=== PATIENT | female | born 1990 | race Caucasian/White ===

== ENCOUNTER 2021-04-06 13:53 | Inpatient (IN) | payer MEDICAID, SELFPAY ==
--- NOTE | ~2021-04-06 | US_ITS ---
EXAMINATION: US VENOUS ULTRASOUND WITH DOPPLER LOWER EXTREMITY, BILATERAL CLINICAL INFORMATION: Left knees with cellulitis. Question abscess or joint effusion. COMPARISON: None TECHNIQUE: Ultrasound of the deep veins is performed from the hip to the calf with compression sonography and color and pulse Doppler assessment. Spectral analysis with color-flow imaging is performed. FINDINGS: RIGHT: There is normal venous compression and respiratory variation and augmented flow. The visualized common femoral vein, superficial femoral vein, profunda femoral vein, popliteal vein, and the trifurcation region shows no evidence of deep venous thrombosis. There is no popliteal fossa cyst. LEFT: There is normal venous compression and respiratory variation and augmented flow. The visualized common femoral vein, superficial femoral vein, profunda femoral vein, popliteal vein, and the trifurcation region shows no evidence of deep venous thrombosis. There is no popliteal fossa cyst. There is soft tissue edema. There is a small amount of fluid adjacent to the patella. US/US venous duplex LE BI IMPRESSION: No DVT demonstrated in the bilateral lower extremity. Left leg edema and small amount of fluid adjacent to the patella.
--- NOTE | ~2021-04-06 | CT_ITS ---
EXAMINATION: CT ABDOMEN AND PELVIS WITH CONTRAST CLINICAL INFORMATION: Liver failure. Evaluate for mass or obstruction COMPARISON: None TECHNIQUE: Multidetector volumetric images were obtained from the superior aspect of through the pubic symphysis following administration 85 mL of Omnipaque 350 intravenous contrast. Sagittal and coronal reformatted images were obtained on the technologist's workstation. Oral contrast: No This CT examination was performed using dose optimization techniques as appropriate, variously including the following: *Automated exposure control *Adjustment of mA and/or kV according to patient size (this includes techniques or standardized protocols for targeted exams where dose is matched to indication/reason for exam; i.e. extremities or head) *Use of iterative reconstruction technique DLP: 313 mGy-cm FINDINGS: LUNG BASES: No suspicious abnormality in the visualized lower chest LIVER, GALLBLADDER, AND BILIARY TREE: The right lobe measures 19.9 cm. This is between 1 and 2 standard deviations above the mean expected. The liver contour appears smooth. The background hepatic signal appears homogeneous. There is low attenuation tracking along the portal vessels. This can be seen with edema. There is no suspicious focal liver lesion. There are surgical clips in the expected region of the gallbladder. The common duct measures 0.9 cm which is within normal limits after cholecystectomy. PANCREAS: No suspicious abnormality. No pancreatic ductal dilation. SPLEEN: The spleen measures 11.2 cm. This is within one standard deviation of the mean expected. No focal abnormality. ADRENAL GLANDS: Normal KIDNEYS AND URETERS: There is no dilation of the urinary collecting system on either side. There is no suspicious renal mass. Some high attenuation in the central aspect the left kidney could be related to excreted contrast. BLADDER: The bladder is dilated. No focal abnormality. GASTROINTESTINAL TRACT: The absence of fat limits the exam. No definite colonic wall thickening. No small bowel dilation. No suspicious abnormality the stomach. There is no pneumatosis or pneumoperitoneum. ABDOMINAL WALL: No significant hernia is appreciated. LYMPH NODES: There are no measurably enlarged abdominal or pelvic lymph nodes. VASCULAR: There is no abdominal aortic aneurysm. The portal vein enhances. PELVIC VISCERA: Punctate calcification near the junction of cervix with uterine body. There is some gas in the vaginal fornices. OSSEOUS STRUCTURES: No suspicious focal lesion. CT/CT abdomen pelvis w con IMPRESSION: No focal liver lesion. Mild hepatomegaly. Previous cholecystectomy with no biliary dilation. Low attenuation tracks along the portal triads. This can be seen with edema and hepatitis or cholangitis.
--- NOTE | ~2021-04-06 | XR_ITS ---
EXAMINATION: 1. LEFT KNEE. 2. LEFT TIBIA-FIBULA. CLINICAL INFORMATION: Concern for osteomyelitis. COMPARISON: None TECHNIQUE: 1. Left knee. 5 views 2. Left leg. 2 views FINDINGS: 1. Left knee. No focal bone destruction. No joint effusion. There is swelling of the prepatellar soft tissues without air collection or radiopaque foreign body. 2. Left leg. No fracture. No focal bone lesion or abnormal periosteal reaction. No radiographic evidence for osteomyelitis. No soft tissue abnormality. XR/XR knee LT 3V IMPRESSION: 1. Left knee. No evidence for osteomyelitis. No acute osseous abnormality. There is soft tissue swelling in the prepatellar soft tissues. 2. Left leg. Normal left leg.
--- NOTE | ~2021-04-06 | XR_ITS ---
EXAMINATION: 1. LEFT KNEE. 2. LEFT TIBIA-FIBULA. CLINICAL INFORMATION: Concern for osteomyelitis. COMPARISON: None TECHNIQUE: 1. Left knee. 5 views 2. Left leg. 2 views FINDINGS: 1. Left knee. No focal bone destruction. No joint effusion. There is swelling of the prepatellar soft tissues without air collection or radiopaque foreign body. 2. Left leg. No fracture. No focal bone lesion or abnormal periosteal reaction. No radiographic evidence for osteomyelitis. No soft tissue abnormality. XR/XR tibia fibula LT 2V IMPRESSION: 1. Left knee. No evidence for osteomyelitis. No acute osseous abnormality. There is soft tissue swelling in the prepatellar soft tissues. 2. Left leg. Normal left leg.
[2021-04-06 15:30] VITALS: BP 133/84; PULSE 118; RESP 18; TEMP 36.4; O2SAT 100; BMI 20.5
[2021-04-06 17:12] LABS: Basophils Absolute Auto 0.1 X10*3/uL (0.0-0.2); Basophils Percent Auto 0.3 % (0-2); Eosinophils Absolute Auto 0.1 X10*3/uL (0.0-0.4); Eosinophils Percent Auto 0.8 % (0-4); Hematocrit 40.1 % (37-47); Hemoglobin 13.9 g/dl (12.0-16.0); Imm Gran Pct Auto 0.6 % (0.0-0.4); Lymphocytes Absolute Auto 3.9 X10*3/uL (1.2-4.9); Lymphocytes Percent Auto 22.3 % (20-40); MANUAL DIFF FLAG SCAN; Mean Corpuscular HGB Conc 34.7 g/dl (31.0-35.0); Mean Corpuscular Hemoglobin 31.1 pg (27.0-33.0); Mean Corpuscular Volume 89.7 fL (80-98); Mean Platelet Volume 9.5 fL (9.4-12.3); Monocytes Absolute Auto 1.9 X10*3/uL (0.1-1.2); Monocytes Percent Auto 10.8 % (2-11); Neutrophils Absolute Auto 11.5 X10*3/uL (2.0-8.3); Neutrophils Percent Auto 65.2 % (45-73); Platelet Count 397 X10*3/uL (160-400); Red Blood Count 4.47 X10*6/uL (4.20-5.50); Red Cell Distribution Width 13.9 % (11.0-16.0); SCAN SMEAR FLAG 1; White Blood Count 17.6 X10*3/uL (4.8-10.8)
[2021-04-06 17:24] LABS: Lactic Acid 1.9 mmol/L (0.5-2.0)
[2021-04-06] MEDS: cefTRIAXone sodium 1 GM in 0.9 % Sodium Chloride 50 ML IV (17:26)
--- NOTE | 2021-04-06 17:26 | ED.WOUNDLAC ---
HPI - Wound/Laceration General Chief Complaint: Wound/Laceration <CAMRYN Duron Last Filed: 04/06/21 19:08> Stated Complaint: L LEG SWELLING PAIN <CAMRYN Duron Last Filed: 04/06/21 19:08> Time Seen by Provider: 04/06/21 16:34 <CAMRYN Duron Last Filed: 04/06/21 19:08> Source: patient <CAMRYN Duron Last Filed: 04/06/21 19:08> Mode of arrival: ambulatory <CAMRYN Duron Last Filed: 04/06/21 19:08> History of Present Illness HPI narrative: 30-year-old female with no significant past medical history presenting to the ED complaining of left knee erythema, pain, and swelling x3 days. Reports had small shards of glass stuck in leg that she picked out a few days ago from blanket. Reports pain with ROM and ambulation. Denies IVDA numbness, tingling, weakness, fever, chills <CAMRYN Duron Last Filed: 04/06/21 19:08> Onset (ago): day(s) <CAMRYN Duron Last Filed: 04/06/21 19:08> Related Data Allergies/Adverse Reactions: Allergies Allergy/AdvReac Type Severity Reaction Status Date / Time No Known Allergies Allergy Unverified 04/06/21 16:43 <CAMRYN Duron Last Filed: 04/06/21 19:08> Review of Systems Review of Systems: Constitutional: No Fever, No Chills,No Fatigue, No Malaise ENT/Mouth: No Ear Pain, No Nasal Congestion, No sore throat Eyes: No Eye Pain, No Swelling, No Redness, No Vision Changes Cardiovascular: No Chest Pain, No SOB, No Dyspnea on Exertion, No Orthopnea, No Edema Respiratory: No Cough, No Sputum, No Dyspnea Gastrointestinal: No Nausea, No Vomiting, No Abdominal pain, No Hematochezia, No Melena Genitourinary: No irregular bleeding, No Dysuria, No Urinary Frequency, No Hematuria,No Flank Pain Musculoskeletal: + joint pain, No Myalgias, + Joint Swelling Skin: + Skin Lesions, No rash Neuro: No Weakness, No Numbness, No Paresthesias, No Headache <CAMRYN Duron - Last Filed: 04/06/21 19:08> Yes all other systems are reviewed and are negative <CAMRYN Duron - Last Filed: 04/06/21 19:08> [facility] Past Medical History Attestation statement: The following information was validated with the patient. <CAMRYN Duron - Last Filed: 04/06/21 19:08> Medical History: Medical History (Updated 04/06/21 @ 22:55 by Rock Galvan MD) No known health problems <CAMRYN Duron - Last Filed: 04/06/21 19:08> Social History Social History: Social History (Updated 04/06/21 @ 21:15 by Audra Yanez PA-C) Use of substances other than those prescribed or required for medical reasons: Yes Substance Use Type: Crack/Cocaine, Heroin and IV Drugs Last Used Substance: Days (ago) Last Used Substance Other:: 04/05/21 Currently Displaying Signs/Symptoms of Drug Intoxication Withdrawal: No Advance Directives: No Advance Directives Information Provided: No Patient : No <CAMRYN Duron - Last Filed: 04/06/21 19:08> Physical Exam Vital Signs: Vital Signs: Last Vital Signs Temp 99.4 F 04/07/21 00:43 Pulse 94 04/07/21 00:43 Resp 04/07/21 00:43 BP 106/59 L 04/07/21 00:43 Pulse Ox 96 04/07/21 00:43 Body Mass Index 20.5 <CAMRYN Duron - Last Filed: 04/06/21 19:08> Vital Signs: Last Vital Signs Temp 99.4 F 04/07/21 00:43 Pulse 94 04/07/21 00:43 Resp 04/07/21 00:43 BP 106/59 L 04/07/21 00:43 Pulse Ox 96 04/07/21 00:43 Body Mass Index 20.5 <CAMRYN Lilly - Last Filed: 04/06/21 22:43> Vital Signs: Last Vital Signs Temp 99.4 F 04/07/21 00:43 Pulse 94 04/07/21 00:43 Resp 04/07/21 00:43 BP 106/59 L 04/07/21 00:43 Pulse Ox 96 04/07/21 00:43 Body Mass Index 20.5 <Jeet Figueredo MD - Last Filed: 04/07/21 00:50> Const: General: cooperative and no acute distress <CAMRYN Duron - Last Filed: 04/06/21 19:08> Orientation/consciousness: patient oriented x3 <CAMRYN Duron - Last Filed: 04/06/21 19:08> Limitations: no limitations <CAMRYN Duron - Last Filed: 04/06/21 19:08> HENMT: Head: Yes normal to inspection <Mya Birch PA - Last Filed: 04/06/21 19:08> Ears: hearing grossly normal bilaterally <CAMRYN Duron - Last Filed: 04/06/21 19:08> General nose exam: Normal external nose present <CAMRYN Duron - Last Filed: 04/06/21 19:08> Face and sinus: Yes normal facial exam <CAMRYN Duron - Last Filed: 04/06/21 19:08> Eyes: General: appearance normal, both eyes and all related structures <Mya Birch PA - Last Filed: 04/06/21 19:08> EOM: EOMs intact bilaterally <CAMRYN Duron - Last Filed: 04/06/21 19:08> Neck: Neck: Yes normal visual inspection <CAMRYN Duron - Last Filed: 04/06/21 19:08> Resp: Effort & Inspection: normal respiratory effort and no respiratory distress <CAMRYN Duron - Last Filed: 04/06/21 19:08> Cardio: Rate: regular rate <CAMRYN Duron - Last Filed: 04/06/21 19:08> Peripheral pulses: dorsalis pedis present <CAMRYN Duron - Last Filed: 04/06/21 19:08> GI: Inspection: Yes normal to inspection <CAMRYN Duron - Last Filed: 04/06/21 19:08> Skin: Rashes: no rashes <CAMRYN Duron - Last Filed: 04/06/21 19:08> Neuro: General: patient oriented x3 <CAMRYN Duron - Last Filed: 04/06/21 19:08> Gait exam (Neuro): Normal gait present <CAMRYN Duron - Last Filed: 04/06/21 19:08> Extrem: Other: Please refer to image is above of left lower extremity. Left knee erythematous, diffusely tender, warm/hot to touch. Limited active and passive ROM secondary to pain. Neurovascular intact distally. No fluctuance/induration. Tib/fib with superficial ulceration. Slight drainage present. No fluctuance/induration. Surrounding cellulitis, no streaking <CAMRYN Duron - Last Filed: 04/06/21 19:08> General: Yes normal to inspection <CAMRYN Duron - Last Filed: 04/06/21 19:08> Course Course Course Narrative: -noted leukocytosis of 17.6 > will obtain x-rays XR knee LT 3V IMPRESSION: 1. Left knee. No evidence for osteomyelitis. No acute osseous abnormality. There is soft tissue swelling in the prepatellar soft tissues. 2. Left leg. Normal left leg. -1811--patient in acute liver failure with total bilirubin of 4.4, D bili 2.9, AST 826, ALT 1935, alk-phos 202 >> hepatitis panel, acetaminophen, CPK added. > upon further questioning patient reports social drinker, denies Tylenol use, reports hepatitis C antibody which showed in blood however was dormant -1814--case discussed with orthopedic CAMRYN Zapata who will evaluate patient in the ED -orthopedic PA performing joint aspiration at bedside in the ED -1899--ED care transferred to CAMRYN Dominguez pending CT abdomen/pelvis, GI or surgical consult, and anticipated admission <CAMRYN Duron - Last Filed: 04/06/21 19:08> -noted leukocytosis of 17.6 > will obtain x-rays XR knee LT 3V IMPRESSION: 1. Left knee. No evidence for osteomyelitis. No acute osseous abnormality. There is soft tissue swelling in the prepatellar soft tissues. 2. Left leg. Normal left leg. -1811--patient in acute liver failure with total bilirubin of 4.4, D bili 2.9, AST 826, ALT 1935, alk-phos 202 >> hepatitis panel, acetaminophen, CPK added. > upon further questioning patient reports social drinker, denies Tylenol use, reports hepatitis C antibody which showed in blood however was dormant -1814--case discussed with orthopedic CAMRYN Zapata who will evaluate patient in the ED -orthopedic PA performing joint aspiration at bedside in the ED -1899--ED care transferred to CAMRYN Dominguez pending CT abdomen/pelvis, GI or surgical consult, and anticipated admission CT shows: No focal liver lesion. Mild hepatomegaly. Previous cholecystectomy with no biliary dilation. Low attenuation tracks along the portal triads. This can be seen with edema and hepatitis or cholangitis. Ortho PA tried to tap the knee for joint aspiration, patient cannot tolerate. Consulting GI, antibiotics have been started, will admit patient ?Spoke to OG Connor, who said patient has acute hepatitis, he did not think her liver was failing. Dr Galvan will accept pt onto hospitalist service <CAMRYN Lilly - Last Filed: 04/06/21 22:43> MDM - Wound/Laceration MDM Narrative Medical decision making narrative: 30-year-old female with no significant past medical history presenting to the ED complaining of left knee erythema, pain, and swelling x3 days. On exam tachycardic, NAD/nontoxic, physical exam as above, please refer images. Concern for cellulitis vs septic joint/arthritis. Lower concern for osteomyelitis. Low concern for underlying abscess Plan: Labs, blood cultures/lactic, x-rays, IV antibiotics, re-evaluate <CAMRYN Duron - Last Filed: 04/06/21 19:08> 30-year-old female with no significant past medical history presenting to the ED complaining of left knee erythema, pain, and swelling x3 days. On exam tachycardic, NAD/nontoxic, physical exam as above, please refer images. Concern for cellulitis vs septic joint/arthritis. Lower concern for osteomyelitis. Low concern for underlying abscess Plan: Labs, blood cultures/lactic, x-rays, IV antibiotics, re-evaluate Attending: Patient seen [id number] and evaluated by me. Multiple skin injuries and cellulitic changes to the affected knee with a joint effusion present. Patient has no abdominal symptoms but does have evidence of liver failure. Patient denied alcohol abuse, recent use of acetaminophen. She does admit to intravenous drug abuse. Patient had a thoracentesis done by orthopedics and is being admitted for further evaluation of her liver failure and knee infection <Jeet Figueredo MD - Last Filed: 04/07/21 00:50> Medical Records Attestation: I reviewed the patient's medical records. <CAMRYN Duron - Last Filed: 04/06/21 19:08> Lab Data Attestation: I reviewed the patient's lab results. <CAMRYN Duron - Last Filed: 04/06/21 19:08> Result diagrams: : 04/06/21 16:59 04/06/21 16:59 <CAMRYN Duron - Last Filed: 04/06/21 19:08> Labs: Lab Results 04/06/21 04/06/21 04/06/21 Range/Units 16:59 16:59 16:59 WBC 17.6 H (4.8-10.8) X10*3/uL RBC 4.47 (4.20-5.50) X10*6/uL Hgb 13.9 (12.0-16.0) g/dl Hct 40.1 (37-47) % MCV 89.7 (80-98) fL MCH 31.1 (27.0-33.0) pg MCHC 34.7 (31.0-35.0) g/dl RDW 13.9 (11.0-16.0) % Plt Count 397 (160-400) X10*3/uL MPV 9.5 (9.4-12.3) fL Immature Gran % (Auto) 0.6 H (0.0-0.4) % Neut % (Auto) 65.2 (45-73) % Lymph % (Auto) 22.3 (20-40) % Isabella % (Auto) 10.8 (2-11) % Eos % (Auto) 0.8 (0-4) % Baso % (Auto) 0.3 (0-2) % Lymph # (Auto) 3.9 (1.2-4.9) X10*3/uL Isabella # (Auto) 1.9 H (0.1-1.2) X10*3/uL Eos # (Auto) 0.1 (0.0-0.4) X10*3/uL Baso # (Auto) 0.1 (0.0-0.2) X10*3/uL Abs Immat Gran (auto) 0.10 H (0.00-0.03) X10*3/uL Absolute Neuts (auto) 11.5 H (2.0-8.3) X10*3/uL Absolute Nucleated RBC 0.000 (0.0-0.012) X10*3/uL Nucleated RBC % (auto) 0.0 (0.0-0.2) /100WBC Smear Tech's Comments VERIFIED ESR 4 (0-20) MM/HR PT (9.9-13.0) SEC INR (0.9-1.1) APTT (24.1-38.0) SEC Sodium 133 L (135-145) mmol/L Potassium 4.2 (3.3-5.1) mmol/L Chloride 98 (96-108) mmol/L Carbon Dioxide 23 (22-29) mmol/L Anion Gap 16 (12-20) BUN 17 H (9-16) mg/dL Creatinine 0.70 (0.5-1.4) mg/dL Estim Creat Clear Calc 70.3 Estimated GFR > 60 Random Glucose 123 H (60-115) mg/dL Lactic Acid (0.5-2.0) mmol/L Calcium 8.7 (8.4-10.2) mg/dL Magnesium 2.1 (1.6-2.6) mg/dL Total Bilirubin 4.4 H (0.0-1.0) mg/dL Direct Bilirubin 2.9 H (0.0-0.5) mg/dL AST 826 H (5-31) U/L ALT 1935 H (0-31) U/L Alkaline Phosphatase 202 H (39-117) U/L Total Creatine Kinase 21 L (26-140) U/L C-Reactive Protein 0.24 (< or = 0.50) mg/dL Total Protein 6.5 (6.5-8.0) g/dL Albumin 3.8 (3.5-5.0) g/dL Beta HCG, Quant < 2 mIU/mL Urine Opiates Screen (Not Detect) Urine Fentanyl Screen (Not Detect) Acetaminophen < 1 (<30) mcg/mL Ur Barbiturates Screen (Not Detect) Ur Phencyclidine Scrn (Not Detect) Ur Amphetamines Screen (Not Detect) U Benzodiazepines Scrn (Not Detect) Urine Cocaine Screen (Not Detect) U Marijuana (THC) Screen (Not Detect) Ethyl Alcohol mg/dL COVID-19 ([facility]) (Negative) COVID-19 Clin Com 04/06/21 04/06/21 04/06/21 Range/Units 16:59 16:59 18:46 WBC (4.8-10.8) X10*3/uL RBC (4.20-5.50) X10*6/uL Hgb (12.0-16.0) g/dl Hct (37-47) % MCV (80-98) fL MCH (27.0-33.0) pg MCHC (31.0-35.0) g/dl RDW (11.0-16.0) % Plt Count (160-400) X10*3/uL MPV (9.4-12.3) fL Immature Gran % (Auto) (0.0-0.4) % Neut % (Auto) (45-73) % Lymph % (Auto) (20-40) % Isabella % (Auto) (2-11) % Eos % (Auto) (0-4) % Baso % (Auto) (0-2) % Lymph # (Auto) (1.2-4.9) X10*3/uL Isabella # (Auto) (0.1-1.2) X10*3/uL Eos # (Auto) (0.0-0.4) X10*3/uL Baso # (Auto) (0.0-0.2) X10*3/uL Abs Immat Gran (auto) (0.00-0.03) X10*3/uL Absolute Neuts (auto) (2.0-8.3) X10*3/uL Absolute Nucleated RBC (0.0-0.012) X10*3/uL Nucleated RBC % (auto) (0.0-0.2) /100WBC Smear Tech's Comments ESR (0-20) MM/HR PT 15.4 H (9.9-13.0) SEC INR 1.3 H (0.9-1.1) APTT 32.3 (24.1-38.0) SEC Sodium (135-145) mmol/L Potassium (3.3-5.1) mmol/L Chloride (96-108) mmol/L Carbon Dioxide (22-29) mmol/L Anion Gap (12-20) BUN (9-16) mg/dL Creatinine (0.5-1.4) mg/dL Estim Creat Clear Calc Estimated GFR Random Glucose (60-115) mg/dL Lactic Acid 1.9 (0.5-2.0) mmol/L Calcium (8.4-10.2) mg/dL Magnesium (1.6-2.6) mg/dL Total Bilirubin (0.0-1.0) mg/dL Direct Bilirubin (0.0-0.5) mg/dL AST (5-31) U/L ALT (0-31) U/L Alkaline Phosphatase (39-117) U/L Total Creatine Kinase (26-140) U/L C-Reactive Protein (< or = 0.50) mg/dL Total Protein (6.5-8.0) g/dL Albumin (3.5-5.0) g/dL Beta HCG, Quant mIU/mL Urine Opiates Screen (Not Detect) Urine Fentanyl Screen (Not Detect) Acetaminophen (<30) mcg/mL Ur Barbiturates Screen (Not Detect) Ur Phencyclidine Scrn (Not Detect) Ur Amphetamines Screen (Not Detect) U Benzodiazepines Scrn (Not Detect) Urine Cocaine Screen (Not Detect) U Marijuana (THC) Screen (Not Detect) Ethyl Alcohol < 10 mg/dL COVID-19 ([facility]) (Negative) COVID-19 Clin Com 04/06/21 04/06/21 04/06/21 Range/Units 18:46 18:46 20:08 WBC (4.8-10.8) X10*3/uL RBC (4.20-5.50) X10*6/uL Hgb (12.0-16.0) g/dl Hct (37-47) % MCV (80-98) fL MCH (27.0-33.0) pg MCHC (31.0-35.0) g/dl RDW (11.0-16.0) % Plt Count (160-400) X10*3/uL MPV (9.4-12.3) fL Immature Gran % (Auto) (0.0-0.4) % Neut % (Auto) (45-73) % Lymph % (Auto) (20-40) % Isabella % (Auto) (2-11) % Eos % (Auto) (0-4) % Baso % (Auto) (0-2) % Lymph # (Auto) (1.2-4.9) X10*3/uL Isabella # (Auto) (0.1-1.2) X10*3/uL Eos # (Auto) (0.0-0.4) X10*3/uL Baso # (Auto) (0.0-0.2) X10*3/uL Abs Immat Gran (auto) (0.00-0.03) X10*3/uL Absolute Neuts (auto) (2.0-8.3) X10*3/uL Absolute Nucleated RBC (0.0-0.012) X10*3/uL Nucleated RBC % (auto) (0.0-0.2) /100WBC Smear Tech's Comments ESR (0-20) MM/HR PT (9.9-13.0) SEC INR (0.9-1.1) APTT Cancelled (24.1-38.0) SEC Sodium (135-145) mmol/L Potassium (3.3-5.1) mmol/L Chloride (96-108) mmol/L Carbon Dioxide (22-29) mmol/L Anion Gap (12-20) BUN (9-16) mg/dL Creatinine (0.5-1.4) mg/dL Estim Creat Clear Calc Estimated GFR Random Glucose (60-115) mg/dL Lactic Acid (0.5-2.0) mmol/L Calcium (8.4-10.2) mg/dL Magnesium (1.6-2.6) mg/dL Total Bilirubin (0.0-1.0) mg/dL Direct Bilirubin (0.0-0.5) mg/dL AST (5-31) U/L ALT (0-31) U/L Alkaline Phosphatase (39-117) U/L Total Creatine Kinase (26-140) U/L C-Reactive Protein (< or = 0.50) mg/dL Total Protein (6.5-8.0) g/dL Albumin (3.5-5.0) g/dL Beta HCG, Quant mIU/mL Urine Opiates Screen POSITIVE H (Not Detect) Urine Fentanyl Screen POSITIVE H (Not Detect) Acetaminophen (<30) mcg/mL Ur Barbiturates Screen Not Detected (Not Detect) Ur Phencyclidine Scrn Not Detected (Not Detect) Ur Amphetamines Screen Not Detected (Not Detect) U Benzodiazepines Scrn Not Detected (Not Detect) Urine Cocaine Screen POSITIVE H (Not Detect) U Marijuana (THC) Screen Not Detected (Not Detect) Ethyl Alcohol mg/dL COVID-19 ([facility]) Negative (Negative) COVID-19 Clin Com See Note <CAMRYN Duron - Last Filed: 04/06/21 19:08> Lab Results 04/06/21 04/06/21 04/06/21 Range/Units 16:59 16:59 16:59 WBC 17.6 H (4.8-10.8) X10*3/uL RBC 4.47 (4.20-5.50) X10*6/uL Hgb 13.9 (12.0-16.0) g/dl Hct 40.1 (37-47) % MCV 89.7 (80-98) fL MCH 31.1 (27.0-33.0) pg MCHC 34.7 (31.0-35.0) g/dl RDW 13.9 (11.0-16.0) % Plt Count 397 (160-400) X10*3/uL MPV 9.5 (9.4-12.3) fL Immature Gran % (Auto) 0.6 H (0.0-0.4) % Neut % (Auto) 65.2 (45-73) % Lymph % (Auto) 22.3 (20-40) % Isabella % (Auto) 10.8 (2-11) % Eos % (Auto) 0.8 (0-4) % Baso % (Auto) 0.3 (0-2) % Lymph # (Auto) 3.9 (1.2-4.9) X10*3/uL Isabella # (Auto) 1.9 H (0.1-1.2) X10*3/uL Eos # (Auto) 0.1 (0.0-0.4) X10*3/uL Baso # (Auto) 0.1 (0.0-0.2) X10*3/uL Abs Immat Gran (auto) 0.10 H (0.00-0.03) X10*3/uL Absolute Neuts (auto) 11.5 H (2.0-8.3) X10*3/uL Absolute Nucleated RBC 0.000 (0.0-0.012) X10*3/uL Nucleated RBC % (auto) 0.0 (0.0-0.2) /100WBC Smear Tech's Comments VERIFIED ESR 4 (0-20) MM/HR PT (9.9-13.0) SEC INR (0.9-1.1) APTT (24.1-38.0) SEC Sodium 133 L (135-145) mmol/L Potassium 4.2 (3.3-5.1) mmol/L Chloride 98 (96-108) mmol/L Carbon Dioxide 23 (22-29) mmol/L Anion Gap 16 (12-20) BUN 17 H (9-16) mg/dL Creatinine 0.70 (0.5-1.4) mg/dL Estim Creat Clear Calc 70.3 Estimated GFR > 60 Random Glucose 123 H (60-115) mg/dL Lactic Acid (0.5-2.0) mmol/L Calcium 8.7 (8.4-10.2) mg/dL Magnesium 2.1 (1.6-2.6) mg/dL Total Bilirubin 4.4 H (0.0-1.0) mg/dL Direct Bilirubin 2.9 H (0.0-0.5) mg/dL AST 826 H (5-31) U/L ALT 1935 H (0-31) U/L Alkaline Phosphatase 202 H (39-117) U/L Total Creatine Kinase 21 L (26-140) U/L C-Reactive Protein 0.24 (< or = 0.50) mg/dL Total Protein 6.5 (6.5-8.0) g/dL Albumin 3.8 (3.5-5.0) g/dL Beta HCG, Quant < 2 mIU/mL Urine Opiates Screen (Not Detect) Urine Fentanyl Screen (Not Detect) Acetaminophen < 1 (<30) mcg/mL Ur Barbiturates Screen (Not Detect) Ur Phencyclidine Scrn (Not Detect) Ur Amphetamines Screen (Not Detect) U Benzodiazepines Scrn (Not Detect) Urine Cocaine Screen (Not Detect) U Marijuana (THC) Screen (Not Detect) Ethyl Alcohol mg/dL COVID-19 ([facility]) (Negative) COVID-19 Clin Com 04/06/21 04/06/21 04/06/21 Range/Units 16:59 16:59 18:46 WBC (4.8-10.8) X10*3/uL RBC (4.20-5.50) X10*6/uL Hgb (12.0-16.0) g/dl Hct (37-47) % MCV (80-98) fL MCH (27.0-33.0) pg MCHC (31.0-35.0) g/dl RDW (11.0-16.0) % Plt Count (160-400) X10*3/uL MPV (9.4-12.3) fL Immature Gran % (Auto) (0.0-0.4) % Neut % (Auto) (45-73) % Lymph % (Auto) (20-40) % Isabella % (Auto) (2-11) % Eos % (Auto) (0-4) % Baso % (Auto) (0-2) % Lymph # (Auto) (1.2-4.9) X10*3/uL Isabella # (Auto) (0.1-1.2) X10*3/uL Eos # (Auto) (0.0-0.4) X10*3/uL Baso # (Auto) (0.0-0.2) X10*3/uL Abs Immat Gran (auto) (0.00-0.03) X10*3/uL Absolute Neuts (auto) (2.0-8.3) X10*3/uL Absolute Nucleated RBC (0.0-0.012) X10*3/uL Nucleated RBC % (auto) (0.0-0.2) /100WBC Smear Tech's Comments ESR (0-20) MM/HR PT 15.4 H (9.9-13.0) SEC INR 1.3 H (0.9-1.1) APTT 32.3 (24.1-38.0) SEC Sodium (135-145) mmol/L Potassium (3.3-5.1) mmol/L Chloride (96-108) mmol/L Carbon Dioxide (22-29) mmol/L Anion Gap (12-20) BUN (9-16) mg/dL Creatinine (0.5-1.4) mg/dL Estim Creat Clear Calc Estimated GFR Random Glucose (60-115) mg/dL Lactic Acid 1.9 (0.5-2.0) mmol/L Calcium (8.4-10.2) mg/dL Magnesium (1.6-2.6) mg/dL Total Bilirubin (0.0-1.0) mg/dL Direct Bilirubin (0.0-0.5) mg/dL AST (5-31) U/L ALT (0-31) U/L Alkaline Phosphatase (39-117) U/L Total Creatine Kinase (26-140) U/L C-Reactive Protein (< or = 0.50) mg/dL Total Protein (6.5-8.0) g/dL Albumin (3.5-5.0) g/dL Beta HCG, Quant mIU/mL Urine Opiates Screen (Not Detect) Urine Fentanyl Screen (Not Detect) Acetaminophen (<30) mcg/mL Ur Barbiturates Screen (Not Detect) Ur Phencyclidine Scrn (Not Detect) Ur Amphetamines Screen (Not Detect) U Benzodiazepines Scrn (Not Detect) Urine Cocaine Screen (Not Detect) U Marijuana (THC) Screen (Not Detect) Ethyl Alcohol < 10 mg/dL COVID-19 ([facility]) (Negative) COVID-19 Clin Com 04/06/21 04/06/21 04/06/21 Range/Units 18:46 18:46 20:08 WBC (4.8-10.8) X10*3/uL RBC (4.20-5.50) X10*6/uL Hgb (12.0-16.0) g/dl Hct (37-47) % MCV (80-98) fL MCH (27.0-33.0) pg MCHC (31.0-35.0) g/dl RDW (11.0-16.0) % Plt Count (160-400) X10*3/uL MPV (9.4-12.3) fL Immature Gran % (Auto) (0.0-0.4) % Neut % (Auto) (45-73) % Lymph % (Auto) (20-40) % Isabella % (Auto) (2-11) % Eos % (Auto) (0-4) % Baso % (Auto) (0-2) % Lymph # (Auto) (1.2-4.9) X10*3/uL Isabella # (Auto) (0.1-1.2) X10*3/uL Eos # (Auto) (0.0-0.4) X10*3/uL Baso # (Auto) (0.0-0.2) X10*3/uL Abs Immat Gran (auto) (0.00-0.03) X10*3/uL Absolute Neuts (auto) (2.0-8.3) X10*3/uL Absolute Nucleated RBC (0.0-0.012) X10*3/uL Nucleated RBC % (auto) (0.0-0.2) /100WBC Smear Tech's Comments ESR (0-20) MM/HR PT (9.9-13.0) SEC INR (0.9-1.1) APTT Cancelled (24.1-38.0) SEC Sodium (135-145) mmol/L Potassium (3.3-5.1) mmol/L Chloride (96-108) mmol/L Carbon Dioxide (22-29) mmol/L Anion Gap (12-20) BUN (9-16) mg/dL Creatinine (0.5-1.4) mg/dL Estim Creat Clear Calc Estimated GFR Random Glucose (60-115) mg/dL Lactic Acid (0.5-2.0) mmol/L Calcium (8.4-10.2) mg/dL Magnesium (1.6-2.6) mg/dL Total Bilirubin (0.0-1.0) mg/dL Direct Bilirubin (0.0-0.5) mg/dL AST (5-31) U/L ALT (0-31) U/L Alkaline Phosphatase (39-117) U/L Total Creatine Kinase (26-140) U/L C-Reactive Protein (< or = 0.50) mg/dL Total Protein (6.5-8.0) g/dL Albumin (3.5-5.0) g/dL Beta HCG, Quant mIU/mL Urine Opiates Screen POSITIVE H (Not Detect) Urine Fentanyl Screen POSITIVE H (Not Detect) Acetaminophen (<30) mcg/mL Ur Barbiturates Screen Not Detected (Not Detect) Ur Phencyclidine Scrn Not Detected (Not Detect) Ur Amphetamines Screen Not Detected (Not Detect) U Benzodiazepines Scrn Not Detected (Not Detect) Urine Cocaine Screen POSITIVE H (Not Detect) U Marijuana (THC) Screen Not Detected (Not Detect) Ethyl Alcohol mg/dL COVID-19 ([facility]) Negative (Negative) COVID-19 Clin Com See Note <CAMRYN Lilly - Last Filed: 04/06/21 22:43> Lab Results 04/06/21 04/06/21 04/06/21 Range/Units 16:59 16:59 16:59 WBC 17.6 H (4.8-10.8) X10*3/uL RBC 4.47 (4.20-5.50) X10*6/uL Hgb 13.9 (12.0-16.0) g/dl Hct 40.1 (37-47) % MCV 89.7 (80-98) fL MCH 31.1 (27.0-33.0) pg MCHC 34.7 (31.0-35.0) g/dl RDW 13.9 (11.0-16.0) % Plt Count 397 (160-400) X10*3/uL MPV 9.5 (9.4-12.3) fL Immature Gran % (Auto) 0.6 H (0.0-0.4) % Neut % (Auto) 65.2 (45-73) % Lymph % (Auto) 22.3 (20-40) % Isabella % (Auto) 10.8 (2-11) % Eos % (Auto) 0.8 (0-4) % Baso % (Auto) 0.3 (0-2) % Lymph # (Auto) 3.9 (1.2-4.9) X10*3/uL Isabella # (Auto) 1.9 H (0.1-1.2) X10*3/uL Eos # (Auto) 0.1 (0.0-0.4) X10*3/uL Baso # (Auto) 0.1 (0.0-0.2) X10*3/uL Abs Immat Gran (auto) 0.10 H (0.00-0.03) X10*3/uL Absolute Neuts (auto) 11.5 H (2.0-8.3) X10*3/uL Absolute Nucleated RBC 0.000 (0.0-0.012) X10*3/uL Nucleated RBC % (auto) 0.0 (0.0-0.2) /100WBC Smear Tech's Comments VERIFIED ESR 4 (0-20) MM/HR PT (9.9-13.0) SEC INR (0.9-1.1) APTT (24.1-38.0) SEC Sodium 133 L (135-145) mmol/L Potassium 4.2 (3.3-5.1) mmol/L Chloride 98 (96-108) mmol/L Carbon Dioxide 23 (22-29) mmol/L Anion Gap 16 (12-20) BUN 17 H (9-16) mg/dL Creatinine 0.70 (0.5-1.4) mg/dL Estim Creat Clear Calc 70.3 Estimated GFR > 60 Random Glucose 123 H (60-115) mg/dL Lactic Acid (0.5-2.0) mmol/L Calcium 8.7 (8.4-10.2) mg/dL Magnesium 2.1 (1.6-2.6) mg/dL Total Bilirubin 4.4 H (0.0-1.0) mg/dL Direct Bilirubin 2.9 H (0.0-0.5) mg/dL AST 826 H (5-31) U/L ALT 1935 H (0-31) U/L Alkaline Phosphatase 202 H (39-117) U/L Total Creatine Kinase 21 L (26-140) U/L C-Reactive Protein 0.24 (< or = 0.50) mg/dL Total Protein 6.5 (6.5-8.0) g/dL Albumin 3.8 (3.5-5.0) g/dL Beta HCG, Quant < 2 mIU/mL Urine Opiates Screen (Not Detect) Urine Fentanyl Screen (Not Detect) Acetaminophen < 1 (<30) mcg/mL Ur Barbiturates Screen (Not Detect) Ur Phencyclidine Scrn (Not Detect) Ur Amphetamines Screen (Not Detect) U Benzodiazepines Scrn (Not Detect) Urine Cocaine Screen (Not Detect) U Marijuana (THC) Screen (Not Detect) Ethyl Alcohol mg/dL COVID-19 ([facility]) (Negative) COVID-19 Clin Com 04/06/21 04/06/21 04/06/21 Range/Units 16:59 16:59 18:46 WBC (4.8-10.8) X10*3/uL RBC (4.20-5.50) X10*6/uL Hgb (12.0-16.0) g/dl Hct (37-47) % MCV (80-98) fL MCH (27.0-33.0) pg MCHC (31.0-35.0) g/dl RDW (11.0-16.0) % Plt Count (160-400) X10*3/uL MPV (9.4-12.3) fL Immature Gran % (Auto) (0.0-0.4) % Neut % (Auto) (45-73) % Lymph % (Auto) (20-40) % Isabella % (Auto) (2-11) % Eos % (Auto) (0-4) % Baso % (Auto) (0-2) % Lymph # (Auto) (1.2-4.9) X10*3/uL Isabella # (Auto) (0.1-1.2) X10*3/uL Eos # (Auto) (0.0-0.4) X10*3/uL Baso # (Auto) (0.0-0.2) X10*3/uL Abs Immat Gran (auto) (0.00-0.03) X10*3/uL Absolute Neuts (auto) (2.0-8.3) X10*3/uL Absolute Nucleated RBC (0.0-0.012) X10*3/uL Nucleated RBC % (auto) (0.0-0.2) /100WBC Smear Tech's Comments ESR (0-20) MM/HR PT 15.4 H (9.9-13.0) SEC INR 1.3 H (0.9-1.1) APTT 32.3 (24.1-38.0) SEC Sodium (135-145) mmol/L Potassium (3.3-5.1) mmol/L Chloride (96-108) mmol/L Carbon Dioxide (22-29) mmol/L Anion Gap (12-20) BUN (9-16) mg/dL Creatinine (0.5-1.4) mg/dL Estim Creat Clear Calc Estimated GFR Random Glucose (60-115) mg/dL Lactic Acid 1.9 (0.5-2.0) mmol/L Calcium (8.4-10.2) mg/dL Magnesium (1.6-2.6) mg/dL Total Bilirubin (0.0-1.0) mg/dL Direct Bilirubin (0.0-0.5) mg/dL AST (5-31) U/L ALT (0-31) U/L Alkaline Phosphatase (39-117) U/L Total Creatine Kinase (26-140) U/L C-Reactive Protein (< or = 0.50) mg/dL Total Protein (6.5-8.0) g/dL Albumin (3.5-5.0) g/dL Beta HCG, Quant mIU/mL Urine Opiates Screen (Not Detect) Urine Fentanyl Screen (Not Detect) Acetaminophen (<30) mcg/mL Ur Barbiturates Screen (Not Detect) Ur Phencyclidine Scrn (Not Detect) Ur Amphetamines Screen (Not Detect) U Benzodiazepines Scrn (Not Detect) Urine Cocaine Screen (Not Detect) U Marijuana (THC) Screen (Not Detect) Ethyl Alcohol < 10 mg/dL COVID-19 ([facility]) (Negative) COVID-19 Clin Com 04/06/21 04/06/21 04/06/21 Range/Units 18:46 18:46 20:08 WBC (4.8-10.8) X10*3/uL RBC (4.20-5.50) X10*6/uL Hgb (12.0-16.0) g/dl Hct (37-47) % MCV (80-98) fL MCH (27.0-33.0) pg MCHC (31.0-35.0) g/dl RDW (11.0-16.0) % Plt Count (160-400) X10*3/uL MPV (9.4-12.3) fL Immature Gran % (Auto) (0.0-0.4) % Neut % (Auto) (45-73) % Lymph % (Auto) (20-40) % [place] % (Auto) (2-11) % Eos % (Auto) (0-4) % Baso % (Auto) (0-2) % Lymph # (Auto) (1.2-4.9) X10*3/uL [place] # (Auto) (0.1-1.2) X10*3/uL Eos # (Auto) (0.0-0.4) X10*3/uL Baso # (Auto) (0.0-0.2) X10*3/uL Abs Immat Gran (auto) (0.00-0.03) X10*3/uL Absolute Neuts (auto) (2.0-8.3) X10*3/uL Absolute Nucleated RBC (0.0-0.012) X10*3/uL Nucleated RBC % (auto) (0.0-0.2) /100WBC Smear Tech's Comments ESR (0-20) MM/HR PT (9.9-13.0) SEC INR (0.9-1.1) APTT Cancelled (24.1-38.0) SEC Sodium (135-145) mmol/L Potassium (3.3-5.1) mmol/L Chloride (96-108) mmol/L Carbon Dioxide (22-29) mmol/L Anion Gap (12-20) BUN (9-16) mg/dL Creatinine (0.5-1.4) mg/dL Estim Creat Clear Calc Estimated GFR Random Glucose (60-115) mg/dL Lactic Acid (0.5-2.0) mmol/L Calcium (8.4-10.2) mg/dL Magnesium (1.6-2.6) mg/dL Total Bilirubin (0.0-1.0) mg/dL Direct Bilirubin (0.0-0.5) mg/dL AST (5-31) U/L ALT (0-31) U/L Alkaline Phosphatase (39-117) U/L Total Creatine Kinase (26-140) U/L C-Reactive Protein (< or = 0.50) mg/dL Total Protein (6.5-8.0) g/dL Albumin (3.5-5.0) g/dL Beta HCG, Quant mIU/mL Urine Opiates Screen POSITIVE H (Not Detect) Urine Fentanyl Screen POSITIVE H (Not Detect) Acetaminophen (<30) mcg/mL Ur Barbiturates Screen Not Detected (Not Detect) Ur Phencyclidine Scrn Not Detected (Not Detect) Ur Amphetamines Screen Not Detected (Not Detect) U Benzodiazepines Scrn Not Detected (Not Detect) Urine Cocaine Screen POSITIVE H (Not Detect) U Marijuana (THC) Screen Not Detected (Not Detect) Ethyl Alcohol mg/dL COVID-19 ([facility]) Negative (Negative) COVID-19 Clin Com See Note <Jeet Figueredo MD - Last Filed: 04/07/21 00:50> Discharge Plan Discharge Clinical Impression: Acute liver failure Qualifiers: Hepatic coma status: without hepatic coma Qualified Code(s): K72.00 - Acute and subacute hepatic failure without coma Cellulitis Qualifiers: Site of cellulitis: extremity Site of cellulitis of extremity: lower extremity Laterality: left Qualified Code(s): L03.116 - Cellulitis of left lower limb <CAMRYN Duron - Last Filed: 04/06/21 19:08> Patient Disposition: Admitted As Inpatient <CAMRYN Duron - Last Filed: 04/06/21 19:08>
[2021-04-06 17:29] LABS: Alanine Aminotransferase 1935 U/L (0-31); Albumin Level 3.8 g/dL (3.5-5.0); Alkaline Phosphatase 202 U/L (39-117); Anion Gap 16 (12-20); Aspartate Amino Transferase 826 U/L (5-31); Bilirubin Direct 2.9 mg/dL (0.0-0.5); Bilirubin Total 4.4 mg/dL (0.0-1.0); Blood Urea Nitrogen 17 mg/dL (9-16); C Reactive Protein 0.24 mg/dL (< or = 0.50); Calcium 8.7 mg/dL (8.4-10.2); Carbon Dioxide 23 mmol/L (22-29); Chloride 98 mmol/L (96-108); Creatinine Clr Calc Pharmacy 70.3; Estimated Glomerular Filt Rate > 60; Glucose Random 123 mg/dL (60-115); Magnesium 2.1 mg/dL (1.6-2.6); Potassium 4.2 mmol/L (3.3-5.1); Sodium 133 mmol/L (135-145); Total Protein 6.5 g/dL (6.5-8.0)
[2021-04-06] MEDS: 0.9 % Sodium Chloride 1,000 ML 999 ML IVCONT (17:29)
[2021-04-06 17:30] LABS: SLIDE REVIEW VERIFIED
[2021-04-06 17:54] LABS: Erythrocyte Sedimentation Rate 4 MM/HR (0-20)
[2021-04-06 18:17] LABS: Acetaminophen LAB < 1 mcg/mL (<30)
[2021-04-06] MEDS: vancomycin HCL 750 MG in 0.9 % Sodium Chloride 250 ML 265 MG IV (18:20)
[2021-04-06] MEDS: 0.9 % Sodium Chloride 1,000 ML 999 ML IV (18:20)
[2021-04-06] MEDS: Ketorolac Tromethamine 15 MG/ML VIAL IVPUSH (18:24)
[2021-04-06 18:30] VITALS: BP 116/76; PULSE 96; RESP 17; TEMP 37.3; O2SAT 99
[2021-04-06 18:51] LABS: Ethanol < 10 mg/dL
[2021-04-06 19:01] LABS: INTERNATIONAL NORM RATIO 1.3 (0.9-1.1); Prothrombin Time 15.4 SEC (9.9-13.0)
[2021-04-06 19:03] LABS: Partial Thromboplastin Time 32.3 SEC (24.1-38.0)
[2021-04-06 19:11] LABS: COVID-19 Test Negative (Negative)
[2021-04-06 19:12] LABS: HCG Quantitative < 2 mIU/mL
[2021-04-06] MEDS: iohexoL 350 MG/ML 100 ML INFUS..BTL 85 ML IV (19:40)
--- NOTE | 2021-04-06 20:16 | PC.NURSE ---
REPORT GIVEN TO GRACE DAVIS.
[2021-04-06 20:34] LABS: Amphetamine Screen Urine Not Detected (Not Detect); Barbiturates, Urine Not Detected (Not Detect); Benzodiazepines Screen Urine Not Detected (Not Detect); Cannabinoid Screen Urine Not Detected (Not Detect); Cocaine Screen Urine POSITIVE (Not Detect); Fentanyl, urine POSITIVE (Not Detect); Opiate Screen Urine POSITIVE (Not Detect); Phencyclidine Screen Urine Not Detected (Not Detect)
--- NOTE | 2021-04-06 21:03 | P.CONOP_ITS ---
History of Present Illness HPI Consult date: 04/06/21 Chief complaint: L LEG SWELLING PAIN Narrative: This is a 30 yo female who presents to the ED with worsening redness and pain in the left knee. She states 3 days ago she was at a friends house and she used a blanket that had chards of glass in it and they became stuck in her knee so she began picking them out. Yesterday, She states she continued to pick at the skin and she did notice one area that had scant amount of pus that came o ut . Today, there was swelling with increased pain which prompted her to come to the ED. She states she does have a history of IVDU with heroin and cocaine, most recent use was yesterday. There is an area on her villegas that is about 1.5 cm in diameter that appears to be a healing wound that she picked , she states there was pus but with using peroxide she got it to scab over and feels it is healing. She denies fever or chills. No nausea, vomiting or diarrhea. While in the ED, HR 118, WBC 17.6, Lactic acid 1.9. Given the amount of pain and swelling in the knee, orthopedics was consulted for further evaluation and recommendation. Review of Systems Review of Systems: Yes all other systems are reviewed and are negative PMFSH Past Medical History Medical History (Updated 04/06/21 @ 21:20 by Audra Yanez PA-C) No known health problems Social History Social History (Updated 04/06/21 @ 21:15 by Audra Yanez PA-C) Use of substances other than those prescribed or required for medical reasons: Yes Substance Use Type: Crack/Cocaine, Heroin and IV Drugs Last Used Substance: Days (ago) Last Used Substance Other:: 04/05/21 Currently Displaying Signs/Symptoms of Drug Intoxication Withdrawal: No Advance Directives: No Advance Directives Information Provided: No Patient : No Meds Allergies Allergy/AdvReac Type Severity Reaction Status Date / Time No Known Allergies Allergy Unverified 04/06/21 16:43 Active Medications: Current Medications Pharmacy Consult (Consult Rx Vancomycin Dosing) 1 each MISCELLANE DAILY PRN PRN Reason: Consult order Physical Exam Vital Signs: Vital Signs: Last Vital Signs Temp 99.1 F 04/06/21 18:30 Pulse 96 04/06/21 18:30 Resp 17 04/06/21 18:30 BP 116/76 04/06/21 18:30 Pulse Ox 99 04/06/21 18:30 Body Mass Index 20.5 Const: General: cooperative, comfortable and no acute distress Extrem: Other: There are several abraisons throughout both lower extremities with scabs. The left knee has some erythema and warmth with tenderness to palpation. There is swelling over the prepatellar bursa. She is able to fully extend the knee and can flex to 90. There is an area on the left calf that has a tender abraison with some firmness, no purulance or abscess present. Results Labs Result Diagrams: 04/06/21 16:59 04/06/21 16:59 Labs: Abnormal lab results 04/06/21 04/06/21 04/06/21 Range/Units 16:59 16:59 18:46 WBC 17.6 H (4.8-10.8) X10*3/uL Immature Gran % (Auto) 0.6 H (0.0-0.4) % [place] # (Auto) 1.9 H (0.1-1.2) X10*3/uL Abs Immat Gran (auto) 0.10 H (0.00-0.03) X10*3/uL Absolute Neuts (auto) 11.5 H (2.0-8.3) X10*3/uL PT 15.4 H (9.9-13.0) SEC INR 1.3 H (0.9-1.1) Sodium 133 L (135-145) mmol/L BUN 17 H (9-16) mg/dL Random Glucose 123 H (60-115) mg/dL Total Bilirubin 4.4 H (0.0-1.0) mg/dL Direct Bilirubin 2.9 H (0.0-0.5) mg/dL AST 826 H (5-31) U/L ALT 1935 H (0-31) U/L Alkaline Phosphatase 202 H (39-117) U/L Total Creatine Kinase 21 L (26-140) U/L Urine Opiates Screen (Not Detect) Urine Fentanyl Screen (Not Detect) Urine Cocaine Screen (Not Detect) 04/06/21 Range/Units 20:08 WBC (4.8-10.8) X10*3/uL Immature Gran % (Auto) (0.0-0.4) % [place] # (Auto) (0.1-1.2) X10*3/uL Abs Immat Gran (auto) (0.00-0.03) X10*3/uL Absolute Neuts (auto) (2.0-8.3) X10*3/uL PT (9.9-13.0) SEC INR (0.9-1.1) Sodium (135-145) mmol/L BUN (9-16) mg/dL Random Glucose (60-115) mg/dL Total Bilirubin (0.0-1.0) mg/dL Direct Bilirubin (0.0-0.5) mg/dL AST (5-31) U/L ALT (0-31) U/L Alkaline Phosphatase (39-117) U/L Total Creatine Kinase (26-140) U/L Urine Opiates Screen POSITIVE H (Not Detect) Urine Fentanyl Screen POSITIVE H (Not Detect) Urine Cocaine Screen POSITIVE H (Not Detect) H & H 04/06/21 Range/Units 16:59 Hgb 13.9 (12.0-16.0) g/dl Hct 40.1 (37-47) % Coagulation 04/06/21 Range/Units 18:46 INR 1.3 H (0.9-1.1) All other labs normal. Diagnostic results Knee x-ray: image reviewed (Left knee xrays negative for joint effusion, +prepaterllar bursitis. ) Assessment and Plan (1) Septic prepatellar bursitis of left knee: Status: Acute 30 yo with h.o IVDU cocaine/heroin 1 day ago with left knee pain and swelling. Recommend continued IV abx. With the absence of joint effusion and her ability to perform ROM, it is unlikely this is a septic joint. We will continue to monitor the patient and her symptoms. We will keep her NPO after midnight at this time and re-eval in the morning. Procedures Date of Service Date of Service: 04/06/21 Joint Aspiration/Injection Joint Asp./Inject. 2: Side of body: left Joint Aspirated/Injected: knee Skin prep: Povidone-Iodine1% Needle size used: 18G Total fluid obtained (ml): 0 Additional comments: Aspiration attempted but the patient was significantly uncomfortable and I was unable to withdraw any fluid.
--- NOTE | 2021-04-06 22:09 | PHA.PROG ---
Admission Date/Time: Indication: Skin/joint infection Weight in k.091 kg Obesity Dosing Indication % IBW: No Serum Creatinine - Last 168 Hours 04/06/21 16:59 Creatinine 0.70 Estimated CrCl and GFR - Last 168 Hours 04/06/21 16:59 Estim Creat Clear Calc 70.3 Estimated GFR > 60 Vancomycin Loading Dose: No Loading dose, second 750 mg dose given 8 hours after first dose to make sure patient is therapeutic after 3rd dose Current Vancomycin Dosing Regimen: 750 mg Q12H Date and Time for next Vancomycin Level to be drawn: 04/08 @ 020 Pharmacist Comments on Vancomycin Plan: Continue with Vancomycin 750 mg Q12H. Expected AUC of 469 with a trough of 13.7 Trough to be drawn 04/08 @ 0 before 4th dose Will continue to monitor SCr daily Renetta Edmond PharmD Vancomycin dosing will take advantage of [employer] as a clinical decision support tool that uses Bayesian modeling to calculate individual patient's pharmacokinetic parameters and forecast the patient's drug concentration time course with the target goal AUC 24 range of 400 - 600 mg/L/hr.
--- NOTE | 2021-04-06 22:54 | PM.IMHP ---
History of Present Illness Date of Service: 04/06/21 Chief Complaint: Left knee pain and swelling 30-year-old female with a past medical history of IV drug abuse, polysubstance abuse, cocaine abuse, heroin abuse, history of hep C-not treated anxiety, depression, PTSD; presented to the hospital with a chief complaint left knee lateral side pain redness and swelling. Patient reported that she noticed small area of erythema year old fluid 2 centimetres on the inferior lateral border of the knee joint which gradually extended into the later part of the knee and will then have of the medial side of the knee; which is tender to touch; hence presented to the hospital for further evaluation. Patient reported that she has small scab wounds on the bilateral lower extremities and attributes to picking on the legs; denies any injection in the legs. Also complains of upper extremity small scab wounds; Denies any abdominal discomfort Denies taking excessive pain medications like Tylenol, aspirin. Reports she uses IV heroin and cocaine last use was about 2 days ago; Mentions she has been intermittently in the Suboxone program. Non complaint. Denies any fever chills cough. Denies any recent travel or sick contacts. Review of all other systems is negative except mentioned above ER course: Per ER team patient noted to have mild swelling on left report of left knee; consulted orthopedics-who tried to tap the fluid but was unsuccessful; patient was given IV vancomycin and ceftriaxone home. Also noted to have elevated liver enzymes and elevated T bili-discussed with Dr. Bryant from Gastroenterology-mention outpatient follow-up as reported with the ER team. U tox positive for cocaine Tylenol levels were negative [facility] Medical History (Updated 04/06/21 @ 22:55 by Rock Galvan MD) No known health problems Pertinent family history: Patient denies any family history Social History (Updated 04/06/21 @ 21:15 by Audra Yanez PA-C) Use of substances other than those prescribed or required for medical reasons: Yes Substance Use Type: Crack/Cocaine, Heroin and IV Drugs Last Used Substance: Days (ago) Last Used Substance Other:: 04/05/21 Currently Displaying Signs/Symptoms of Drug Intoxication Withdrawal: No Advance Directives: No Advance Directives Information Provided: No Patient : No Meds Allergies Allergy/AdvReac Type Severity Reaction Status Date / Time No Known Allergies Allergy Unverified 04/06/21 16:43 Active Medications: Current Medications Clonidine HCl (Clonidine Hcl 0.1 Mg Tablet) 0.1 mg PO BID PRN; Protocol PRN Reason: anxiety/restlessness Heparin Sodium (Porcine) (Heparin Sodium,Porcine 5,000 Unit/Ml Vial) 5,000 unit SUBCUT Q12H QASIM Vancomycin HCl 750 mg/ Sodium (Chloride) 265 mls @ 265 mls/hr IV Q12H QASIM Sodium Chloride (Ns) 1,000 mls @ 100 mls/hr IVCONT .Q10H QASIM Magnesium Hydroxide (Milk Of Magnesia 30 Ml Oral.Susp) 30 ml PO DAILY PRN PRN Reason: Constipation Melatonin (Melatonin 3 Mg Tablet) 6 mg PO BEDTIME PRN PRN Reason: Insomnia Oxycodone HCl (Oxycodone Hcl Immed Release 5 Mg Tablet) 5 mg PO Q6H PRN PRN Reason: Pain, Severe (Pain Scale 7-10) Pharmacy Consult (Consult Rx Vancomycin Dosing) 1 each MISCELLANE DAILY PRN PRN Reason: Consult order Senna (Sennosides 8.6 Mg Tablet) 17.2 mg PO BEDTIME PRN PRN Reason: Constipation Sodium Chloride (0.9 % Sodium Chloride Flush 3 Ml Syringe) 3 ml IVFLUSH QSHIFT QASIM Physical Exam Vital Signs and Narrative: Vital Signs: Last Vital Signs Temp 99.1 F 04/06/21 18:30 Pulse 96 04/06/21 18:30 Resp 17 04/06/21 18:30 BP 116/76 04/06/21 18:30 Pulse Ox 99 04/06/21 18:30 Body Mass Index 20.5 Gen: Appears be in no acute distress HEENT: NCAT, Moist mucosa. Pulmonary: Vesicular breath sounds, fair air entry; no wheezing CVS: Normal S1-S2; regular; no murmur Abdomen: BS+, Soft, Nontender Extremities: Warm well perfused; diffuse scab wounds noted on the bilateral upper and lower extremities more on the left lower extremity; on the left mid villegas noted more circular ulcer with granulation tissue; on the left knee lateral side noted mild hyperemia, erythema, tenderness, mild fluctuance; knee joint itself does not appear to be swollen; left leg is mildly swollen compared to the right Neuro: Alert and awake. Grossly nonfocal Results Labs CBC and Chem 7: 04/06/21 16:59 04/06/21 16:59 Labs: Laboratory Results - last 24 hr 04/06/21 04/06/21 04/06/21 16:59 16:59 16:59 MCV 89.7 MCH 31.1 MCHC 34.7 RDW 13.9 Plt Count 397 MPV 9.5 Immature Gran % (Auto) 0.6 H Neut % (Auto) 65.2 Lymph % (Auto) 22.3 [place] % (Auto) 10.8 Eos % (Auto) 0.8 Baso % (Auto) 0.3 Lymph # (Auto) 3.9 [place] # (Auto) 1.9 H Eos # (Auto) 0.1 Baso # (Auto) 0.1 Abs Immat Gran (auto) 0.10 H Absolute Neuts (auto) 11.5 H Absolute Nucleated RBC 0.000 Nucleated RBC % (auto) 0.0 Smear Tech's Comments VERIFIED ESR 4 PT INR APTT Anion Gap 16 Estim Creat Clear Calc 70.3 Estimated GFR > 60 Random Glucose 123 H Lactic Acid Calcium 8.7 Magnesium 2.1 Total Bilirubin 4.4 H Direct Bilirubin 2.9 H AST 826 H ALT 1935 H Alkaline Phosphatase 202 H Total Creatine Kinase 21 L C-Reactive Protein 0.24 Total Protein 6.5 Albumin 3.8 Beta HCG, Quant < 2 Urine Opiates Screen Urine Fentanyl Screen Acetaminophen < 1 Ur Barbiturates Screen Ur Phencyclidine Scrn Ur Amphetamines Screen U Benzodiazepines Scrn Urine Cocaine Screen U Marijuana (THC) Screen Ethyl Alcohol COVID-19 ([facility]) COVID-19 Clin Com 04/06/21 04/06/21 04/06/21 16:59 16:59 18:46 MCV MCH MCHC RDW Plt Count MPV Immature Gran % (Auto) Neut % (Auto) Lymph % (Auto) [place] % (Auto) Eos % (Auto) Baso % (Auto) Lymph # (Auto) [place] # (Auto) Eos # (Auto) Baso # (Auto) Abs Immat Gran (auto) Absolute Neuts (auto) Absolute Nucleated RBC Nucleated RBC % (auto) Smear Tech's Comments ESR PT 15.4 H INR 1.3 H APTT 32.3 Anion Gap Estim Creat Clear Calc Estimated GFR Random Glucose Lactic Acid 1.9 Calcium Magnesium Total Bilirubin Direct Bilirubin AST ALT Alkaline Phosphatase Total Creatine Kinase C-Reactive Protein Total Protein Albumin Beta HCG, Quant Urine Opiates Screen Urine Fentanyl Screen Acetaminophen Ur Barbiturates Screen Ur Phencyclidine Scrn Ur Amphetamines Screen U Benzodiazepines Scrn Urine Cocaine Screen U Marijuana (THC) Screen Ethyl Alcohol < 10 COVID-19 ([facility]) COVID-19 Clin Com 04/06/21 04/06/21 04/06/21 18:46 18:46 20:08 MCV MCH MCHC RDW Plt Count MPV Immature Gran % (Auto) Neut % (Auto) Lymph % (Auto) [place] % (Auto) Eos % (Auto) Baso % (Auto) Lymph # (Auto) [place] # (Auto) Eos # (Auto) Baso # (Auto) Abs Immat Gran (auto) Absolute Neuts (auto) Absolute Nucleated RBC Nucleated RBC % (auto) Smear Tech's Comments ESR PT INR APTT Cancelled Anion Gap Estim Creat Clear Calc Estimated GFR Random Glucose Lactic Acid Calcium Magnesium Total Bilirubin Direct Bilirubin AST ALT Alkaline Phosphatase Total Creatine Kinase C-Reactive Protein Total Protein Albumin Beta HCG, Quant Urine Opiates Screen POSITIVE H Urine Fentanyl Screen POSITIVE H Acetaminophen Ur Barbiturates Screen Not Detected Ur Phencyclidine Scrn Not Detected Ur Amphetamines Screen Not Detected U Benzodiazepines Scrn Not Detected Urine Cocaine Screen POSITIVE H U Marijuana (THC) Screen Not Detected Ethyl Alcohol COVID-19 ([facility]) Negative COVID-19 Clin Com See Note Imaging Radiologist's Impressions: Impressions Knee X-Ray 04/06/21 17:33 IMPRESSION: 1. Left knee. No evidence for osteomyelitis. No acute osseous abnormality. There is soft tissue swelling in the prepatellar soft tissues. 2. Left leg. Normal left leg. Tibia/Fibula X-Ray 04/06/21 17:33 IMPRESSION: 1. Left knee. No evidence for osteomyelitis. No acute osseous abnormality. There is soft tissue swelling in the prepatellar soft tissues. 2. Left leg. Normal left leg. Abdomen/Pelvis CT 04/06/21 18:07 IMPRESSION: No focal liver lesion. Mild hepatomegaly. Previous cholecystectomy with no biliary dilation. Low attenuation tracks along the portal triads. This can be seen with edema and hepatitis or cholangitis. Assessment and Plan (1) Acute liver failure: Qualifiers: Hepatic coma status: without hepatic coma Qualified Code(s): K72.00 - Acute and subacute hepatic failure without coma Status: Acute (2) Septic prepatellar bursitis of left knee: Status: Acute (3) Cellulitis: Qualifiers: Laterality: left Site of cellulitis: extremity Site of cellulitis of extremity: lower extremity Qualified Code(s): L03.116 - Cellulitis of left lower limb Status: Acute (4) Heroin abuse: Status: Acute (5) Cocaine abuse: Status: Acute (6) Hx of hepatitis C: Status: Acute (7) IVDA (intravenous drug abuse) complicating : Status: Acute 30-year-old female with a past medical history of IV drug abuse, polysubstance abuse, cocaine abuse, heroin abuse, history of hep C-not treated anxiety, depression, PTSD; presented to the hospital with a chief complaint left knee lateral side pain redness and swelling. Noted to have left knee cellulitis: Left knee cellulitis: Concern for prepatellar bursitis versus joint infection; orthopedics was consulted in the ER-tried to tap the knee joint but was unsuccessful; Will obtain ultrasound rule out any abscess/joint effusion. Continue IV vancomycin and ceftriaxone Consult ID Left leg is mildly swollen compared to the right leg-will also obtain venous duplex Opiate abuse: Monitor on cause protocol. Clonidine p.r.n.. Addiction Medicine consult for further recommendations. Transaminitis: Patient noted to have elevated liver enzymes and T bili. CT abdomen showed no acute findings; Avoid hepatotoxins Notified gastroenterology Dr. 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 History of anxiety/depression: Continue home medications DVT prophylaxis: Subcu heparin Code status: Full code Quality Stroke Does the patient have a stroke diagnosis?: No VTE Prior VTE?: No VTE Risk Level:: Medical - moderate - high VTE Device Contraindication: Treatment Not Indicated VTE Drug Contraindication: N/A - Med Ordered
[2021-04-07] MEDS: 0.9 % Sodium Chloride 1,000 ML 100 ML IVCONT ×3 (00:37→23:55)
[2021-04-07] MEDS: Heparin Sodium,Porcine 5,000 UNIT/ML VIAL 5000 UNIT SUBCUT ×3 (00:38→23:53)
[2021-04-07] MEDS: 0.9 % Sodium Chloride Flush 3 ML SYRINGE IVFLUSH ×2 (00:38→23:53)
[2021-04-07 00:43] VITALS: BP 106/59; PULSE 94; RESP 18; TEMP 37.4; O2SAT 96
--- NOTE | 2021-04-07 00:45 | PC.NURSE ---
Pt alert/oriented, falls aslepp easily. Medicated as charted. Left knee red, warm to touch. Pt eating at this time. visitor at bedside. awaits bed assgn. Ns started at 100ml/hr
[2021-04-07] MEDS: vancomycin HCL 750 MG in 0.9 % Sodium Chloride 250 ML 265 MG IV ×2 (02:55→16:26)
--- NOTE | 2021-04-07 04:58 | PC.NURSE ---
pt is currently asleep, respirations even and unlabored, pt is awaiting room assignment
[2021-04-07 05:31] VITALS: BP 101/53; PULSE 96; RESP 16; O2SAT 95
[2021-04-07 07:17] LABS: Basophils Percent Auto 0.2 % (0-2); Eosinophils Absolute Auto 0.1 X10*3/uL (0.0-0.4); Eosinophils Percent Auto 0.7 % (0-4); Hematocrit 33.7 % (37-47); Hemoglobin 11.5 g/dl (12.0-16.0); Imm Gran Abs Auto 0.07 X10*3/uL (0.00-0.03); Imm Gran Pct Auto 0.5 % (0.0-0.4); Lymphocytes Absolute Auto 3.4 X10*3/uL (1.2-4.9); MANUAL DIFF FLAG SCAN; Mean Corpuscular HGB Conc 34.1 g/dl (31.0-35.0); Mean Corpuscular Hemoglobin 31.3 pg (27.0-33.0); Mean Corpuscular Volume 91.6 fL (80-98); Mean Platelet Volume 9.6 fL (9.4-12.3); Monocytes Absolute Auto 1.4 X10*3/uL (0.1-1.2); Monocytes Percent Auto 10.7 % (2-11); Neutrophils Absolute Auto 7.9 X10*3/uL (2.0-8.3); Neutrophils Percent Auto 61.9 % (45-73); Platelet Count 277 X10*3/uL (160-400); Red Blood Count 3.68 X10*6/uL (4.20-5.50); Red Cell Distribution Width 14.1 % (11.0-16.0); SCAN SMEAR FLAG 1; White Blood Count 12.9 X10*3/uL (4.8-10.8)
[2021-04-07 07:39] LABS: SLIDE REVIEW VERIFIED
[2021-04-07 07:48] LABS: Anion Gap 8 (12-20); Blood Urea Nitrogen 10 mg/dL (9-16); Calcium 7.5 mg/dL (8.4-10.2); Carbon Dioxide 25 mmol/L (22-29); Chloride 107 mmol/L (96-108); Creatinine Clr Calc Pharmacy 79.3; Estimated Glomerular Filt Rate > 60; Glucose Random 110 mg/dL (60-115); Magnesium 1.9 mg/dL (1.6-2.6); Potassium 3.9 mmol/L (3.3-5.1); Sodium 136 mmol/L (135-145)
--- NOTE | 2021-04-07 10:31 | HO.PM.IMPN ---
Subjective Subjective Date of Service: 04/07/21 Interval History: cc: left knee pain and swelling interval history: some improvement, still with pain and swelling Cardiovascular Cardiovascular: Reports no additional cardiovascular complaints Respiratory Respiratory: Reports no additional respiratory complaints Physical Exam Vital Signs: Vital Signs: Last Vital Signs Temp 99.4 F 04/07/21 00:43 Pulse 96 04/07/21 05:31 Resp 16 04/07/21 05:31 BP 101/53 L 04/07/21 05:31 Pulse Ox 95 04/07/21 05:31 Body Mass Index 20.5 There are several abraisons throughout both lower extremities with scabs. The left knee has some erythema and warmth with tenderness to palpation. There is swelling over the prepatellar bursa. She is able to fully extend the knee and can flex to 90. There is an area on the left calf that has a tender abraison with some firmness, no purulance or abscess present. General: AO X 3, no acute distress, ill appearing Resp: CTA bilateral, no accessory muscles used CVS: S1,S2,RRR GI: soft, non tender, non distended Neuro: motor grossly intact, alert Psych: appropriate affect, appropriate insight Objective Data Active Medications Clonidine HCl (Clonidine Hcl 0.1 Mg Tablet) 0.1 mg PO BID PRN; Protocol PRN Reason: anxiety/restlessness Heparin Sodium (Porcine) (Heparin Sodium,Porcine 5,000 Unit/Ml Vial) 5,000 unit SUBCUT Q12H [facility] Last Admin: 04/07/21 10:17 Dose: 5,000 unit Documented by: PRIMO Vancomycin HCl 750 mg/ Sodium (Chloride) 265 mls @ 265 mls/hr IV Q12H [facility] Last Infusion: 04/07/21 03:00 Dose: 0 mls/hr Documented by: BLAYNE Sodium Chloride (Ns) 1,000 mls @ 100 mls/hr IVCONT .Q10H [facility] Last Admin: 04/07/21 10:17 Dose: 100 mls/hr Documented by: PRIMO Ceftriaxone Sodium 1 gm/ (Sodium Chloride) 50 mls @ 100 mls/hr IV Q24H [facility] Magnesium Hydroxide (Milk Of Magnesia 30 Ml Oral.Susp) 30 ml PO DAILY PRN PRN Reason: Constipation Melatonin (Melatonin 3 Mg Tablet) 6 mg PO BEDTIME PRN PRN Reason: Insomnia Oxycodone HCl (Oxycodone Hcl Immed Release 5 Mg Tablet) 5 mg PO Q6H PRN PRN Reason: Pain, Severe (Pain Scale 7-10) Pharmacy Consult (Consult Rx Vancomycin Dosing) 1 each MISCELLANE DAILY PRN PRN Reason: Consult order Pharmacy Consult (Consult Rx Vancomycin Dosing) 1 each MISCELLANE DAILY PRN PRN Reason: Consult order Senna (Sennosides 8.6 Mg Tablet) 17.2 mg PO BEDTIME PRN PRN Reason: Constipation Sodium Chloride (0.9 % Sodium Chloride Flush 3 Ml Syringe) 3 ml IVFLUSH QSHIFT QASIM Last Admin: 04/07/21 10:17 Dose: Not Given Documented by: PRIMO Non-Admin Reason: IV Running Labs CBC & Chem 7: 04/07/21 07:08 04/07/21 07:08 Labs: Laboratory Results - last 24 hr 04/06/21 04/06/21 04/06/21 16:59 16:59 16:59 MCV 89.7 MCH 31.1 MCHC 34.7 RDW 13.9 Plt Count 397 MPV 9.5 Immature Gran % (Auto) 0.6 H Neut % (Auto) 65.2 Lymph % (Auto) 22.3 Lucas % (Auto) 10.8 Eos % (Auto) 0.8 Baso % (Auto) 0.3 Lymph # (Auto) 3.9 Lucas # (Auto) 1.9 H Eos # (Auto) 0.1 Baso # (Auto) 0.1 Abs Immat Gran (auto) 0.10 H Absolute Neuts (auto) 11.5 H Absolute Nucleated RBC 0.000 Nucleated RBC % (auto) 0.0 Smear Tech's Comments VERIFIED ESR 4 PT INR APTT Anion Gap 16 Estim Creat Clear Calc 70.3 Estimated GFR > 60 Random Glucose 123 H Lactic Acid Calcium 8.7 Magnesium 2.1 Total Bilirubin 4.4 H Direct Bilirubin 2.9 H AST 826 H ALT 1935 H Alkaline Phosphatase 202 H Total Creatine Kinase 21 L C-Reactive Protein 0.24 Total Protein 6.5 Albumin 3.8 Beta HCG, Quant < 2 Urine Opiates Screen Urine Fentanyl Screen Acetaminophen < 1 Ur Barbiturates Screen Ur Phencyclidine Scrn Ur Amphetamines Screen U Benzodiazepines Scrn Urine Cocaine Screen U Marijuana (THC) Screen Ethyl Alcohol COVID-19 ([facility]) COVID-19 Clin Com Hepatitis A IgM Ab Hep Bs Antigen Hep Bs Antibody Hep B Core Total Ab Hepatitis C Ab (EIA) 04/06/21 04/06/21 04/06/21 16:59 16:59 16:59 MCV MCH MCHC RDW Plt Count MPV Immature Gran % (Auto) Neut % (Auto) Lymph % (Auto) Lucas % (Auto) Eos % (Auto) Baso % (Auto) Lymph # (Auto) Lucas # (Auto) Eos # (Auto) Baso # (Auto) Abs Immat Gran (auto) Absolute Neuts (auto) Absolute Nucleated RBC Nucleated RBC % (auto) Smear Tech's Comments ESR PT INR APTT Anion Gap Estim Creat Clear Calc Estimated GFR Random Glucose Lactic Acid 1.9 Calcium Magnesium Total Bilirubin Direct Bilirubin AST ALT Alkaline Phosphatase Total Creatine Kinase C-Reactive Protein Total Protein Albumin Beta HCG, Quant Urine Opiates Screen Urine Fentanyl Screen Acetaminophen Ur Barbiturates Screen Ur Phencyclidine Scrn Ur Amphetamines Screen U Benzodiazepines Scrn Urine Cocaine Screen U Marijuana (THC) Screen Ethyl Alcohol < 10 COVID-19 ([facility]) COVID-19 Clin Com Hepatitis A IgM Ab Cancelled Hep Bs Antigen Cancelled Hep Bs Antibody Cancelled Hep B Core Total Ab Cancelled Hepatitis C Ab (EIA) Cancelled 04/06/21 04/06/21 04/06/21 18:46 18:46 18:46 MCV MCH MCHC RDW Plt Count MPV Immature Gran % (Auto) Neut % (Auto) Lymph % (Auto) Lucas % (Auto) Eos % (Auto) Baso % (Auto) Lymph # (Auto) Lucas # (Auto) Eos # (Auto) Baso # (Auto) Abs Immat Gran (auto) Absolute Neuts (auto) Absolute Nucleated RBC Nucleated RBC % (auto) Smear Tech's Comments ESR PT 15.4 H INR 1.3 H APTT 32.3 Cancelled Anion Gap Estim Creat Clear Calc Estimated GFR Random Glucose Lactic Acid Calcium Magnesium Total Bilirubin Direct Bilirubin AST ALT Alkaline Phosphatase Total Creatine Kinase C-Reactive Protein Total Protein Albumin Beta HCG, Quant Urine Opiates Screen Urine Fentanyl Screen Acetaminophen Ur Barbiturates Screen Ur Phencyclidine Scrn Ur Amphetamines Screen U Benzodiazepines Scrn Urine Cocaine Screen U Marijuana (THC) Screen Ethyl Alcohol COVID-19 ([facility]) Negative COVID-19 Clin Com See Note Hepatitis A IgM Ab Hep Bs Antigen Hep Bs Antibody Hep B Core Total Ab Hepatitis C Ab (EIA) 04/06/21 04/07/21 04/07/21 20:08 07:08 07:08 MCV 91.6 MCH 31.3 MCHC 34.1 RDW 14.1 Plt Count 277 D MPV 9.6 Immature Gran % (Auto) 0.5 H Neut % (Auto) 61.9 Lymph % (Auto) 26.0 Lucas % (Auto) 10.7 Eos % (Auto) 0.7 Baso % (Auto) 0.2 Lymph # (Auto) 3.4 Lucas # (Auto) 1.4 H Eos # (Auto) 0.1 Baso # (Auto) 0.0 Abs Immat Gran (auto) 0.07 H Absolute Neuts (auto) 7.9 Absolute Nucleated RBC 0.000 Nucleated RBC % (auto) 0.0 Smear Tech's Comments VERIFIED ESR PT INR APTT Anion Gap 8 L Estim Creat Clear Calc 79.3 Estimated GFR > 60 Random Glucose 110 Lactic Acid Calcium 7.5 L D Magnesium 1.9 Total Bilirubin Direct Bilirubin AST ALT Alkaline Phosphatase Total Creatine Kinase C-Reactive Protein Total Protein Albumin Beta HCG, Quant Urine Opiates Screen POSITIVE H Urine Fentanyl Screen POSITIVE H Acetaminophen Ur Barbiturates Screen Not Detected Ur Phencyclidine Scrn Not Detected Ur Amphetamines Screen Not Detected U Benzodiazepines Scrn Not Detected Urine Cocaine Screen POSITIVE H U Marijuana (THC) Screen Not Detected Ethyl Alcohol COVID-19 ([facility]) COVID-19 Clin Com Hepatitis A IgM Ab Hep Bs Antigen Hep Bs Antibody Hep B Core Total Ab Hepatitis C Ab (EIA) Assessment and Plan Assessment and Plan: 30F presented with left knee pain, swelling, erythema, found to have acute liver injury left knee cellulitis continue iv vanco, rocephin, follow up cultures, ID ortho following opiate dependence addiction eval acute hepatitis has history of HCV, ?acute decompensation denies alcohol ? toxic from drug use monitor lfts gi eval Quality Stroke Does the patient have a stroke diagnosis?: No VTE Prior VTE?: No VTE Risk Level:: Medical - moderate - high VTE Device Contraindication: Treatment Not Indicated VTE Drug Contraindication: N/A - Med Ordered
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
[2021-04-07 11:08] LABS: Alanine Aminotransferase 1227 U/L (0-31); Albumin Level 2.8 g/dL (3.5-5.0); Alkaline Phosphatase 143 U/L (39-117); Aspartate Amino Transferase 471 U/L (5-31); Bilirubin Direct 2.8 mg/dL (0.0-0.5); Bilirubin Total 3.7 mg/dL (0.0-1.0); Total Protein 4.7 g/dL (6.5-8.0)
[2021-04-07] MEDS: cefTRIAXone sodium 1 GM in 0.9 % Sodium Chloride 50 ML IV (16:28)
[2021-04-07 18:07] VITALS: BP 114/76; PULSE 92; RESP 20; TEMP 37.1; O2SAT 97
[2021-04-07] MEDS: oxyCODONE HCl Immed Release 5 MG TABLET PO (19:21)
--- NOTE | 2021-04-07 20:22 | PM.EVENT ---
Event Note Date of Service: 04/07/21 Event Note: Patient seen at bedside in the ED this morning for f/u left knee No changes in redness, swelling or pain She is able to wbat, flex to 90, extend to 0 continue iv abx will continue to follow
--- NOTE | 2021-04-07 20:29 | PC.NURSE ---
REPORT GIVEN FOR ADMISSION MED SURG
[2021-04-07 21:21] VITALS: BP 119/74; PULSE 102; RESP 17; TEMP 37.6; O2SAT 96
--- NOTE | 2021-04-07 21:26 | CONS_ITS ---
DATE OF SERVICE: 04/07/2021 REFERRING PHYSICIAN: Reed Abdi MD REASON FOR CONSULTATION: Elevated liver function tests. HISTORY OF PRESENT ILLNESS: The patient is a pleasant 30-year-old woman, who was admitted to the hospital after presenting to the emergency room on April 06 with complaints of pain and swelling in the left knee. She has a history of intravenous drug use with substance abuse and also has a history of hepatitis C, which she states has been inactive and not required treatment. She continues to use substances. Her evaluation in the emergency room showed elevation of her liver function tests in a primarily hepatocellular pattern with a total bilirubin of 4.4, AST and ALT of 826 and 1935 and alkaline phosphatase of 202. The patient denies any prior history of significant liver disease. She states she does not drink alcohol and has no family history of liver disease. PAST MEDICAL HISTORY: 1. Substance abuse as above. 2. Hepatitis C. 3. Anxiety/depression. 4. PTSD. CURRENT MEDICATIONS: Her current medication list is reviewed in the chart. ALLERGIES: THERE ARE NONE REPORTED. FAMILY HISTORY: Negative for liver disease. SOCIAL HISTORY: She uses substances as above. REVIEW OF SYSTEMS: SKIN: No pruritus. HEENT: Negative. CARDIOPULMONARY: No shortness of breath or chest pain. GASTROINTESTINAL: As above. GENITOURINARY: Negative. NEUROPSYCHIATRIC: Negative. PHYSICAL EXAMINATION: GENERAL: Reveals a pleasant female, sitting comfortably in bed, watching television, eating chips. VITAL SIGNS: Stable. SKIN: Anicteric. She has multiple open areas from picking. The left knee is swollen. HEENT: Shows no scleral icterus. NECK: Without lymphadenopathy or thyromegaly. LUNGS: Clear. HEART: Shows a regular rate and rhythm. S1, S2. No murmur. ABDOMEN: Soft without focal masses or tenderness. Bowel sounds are present. No organomegaly is noted. EXTREMITIES: Without edema. LABORATORY DATA: Reviewed. Hepatitis testing is pending. IMPRESSION: Elevated liver function tests. Her presentation is consistent with an acute hepatitis, possibly from substance abuse including cocaine and heroin. Given her injection drug use, an acute episode of hepatitis C is also a possibility as is acute hepatitis B. Her CT scan obtained at the time of admission showed a smooth liver with right lobe enlargement. She is status post cholecystectomy. There is no evidence of biliary obstruction. At this point, treatment is mainly supportive. We will await results from her laboratory tests. She has no symptoms referable to her liver and I would recommend outpatient followup for this. Thanks for asking me to see her. I will follow her in the hospital with you. MD RUBI Cohen/ANDREW / [phone]
[2021-04-07 23:50] VITALS: BP 103/54; PULSE 90; RESP 16; TEMP 37.2; O2SAT 98
[2021-04-08 01:39] VITALS: BMI 23.6
[2021-04-08 02:27] LABS: Vancomycin Trough 5.3 mcg/mL (10.0-20.0)
[2021-04-08] MEDS: vancomycin HCL 750 MG in 0.9 % Sodium Chloride 250 ML 265 MG IV (02:46)
[2021-04-08 03:56] LABS: ~HepC Num1 14.47 S/CO (0.00-0.79); ~Hepatitis C Antibody Reactive (Nonreactive)
[2021-04-08 03:58] LABS: HBS Num1 96.21 mIU/mL (0-7.99); HBc Num1 0.11 S/CO (0.00-0.79); HBsAGNum1 0.33 S/CO (0.00-0.99); Hepatitis B Core Antibody Nonreactive (Nonreactive); Hepatitis B Surface Antigen Negative (Negative); ~HepC Num1 16.59 S/CO (0.00-0.79); ~Hepatitis B Surface Antibody REACTIVE (Nonreactive); ~Hepatitis C Antibody Reactive (Nonreactive)
[2021-04-08 05:09] LABS: Hematocrit 35.1 % (37-47); Hemoglobin 12.1 g/dl (12.0-16.0); Mean Corpuscular HGB Conc 34.5 g/dl (31.0-35.0); Mean Corpuscular Hemoglobin 31.6 pg (27.0-33.0); Mean Corpuscular Volume 91.6 fL (80-98); Mean Platelet Volume 9.9 fL (9.4-12.3); Platelet Count 299 X10*3/uL (160-400); Red Blood Count 3.83 X10*6/uL (4.20-5.50); White Blood Count 14.7 X10*3/uL (4.8-10.8)
[2021-04-08 05:34] LABS: Alanine Aminotransferase 1081 U/L (0-31); Albumin Level 2.8 g/dL (3.5-5.0); Alkaline Phosphatase 138 U/L (39-117); Anion Gap 11 (12-20); Aspartate Amino Transferase 442 U/L (5-31); Bilirubin Direct 2.2 mg/dL (0.0-0.5); Blood Urea Nitrogen 5 mg/dL (9-16); Calcium 7.6 mg/dL (8.4-10.2); Carbon Dioxide 25 mmol/L (22-29); Chloride 109 mmol/L (96-108); Creatinine Clr Calc Pharmacy 96.1; Estimated Glomerular Filt Rate > 60; Glucose Fasting 104 mg/dL (60-99); Potassium 3.7 mmol/L (3.3-5.1); Sodium 141 mmol/L (135-145)
--- NOTE | 2021-04-08 07:40 | HE.PHANOTE ---
Pharmacy Note - Vancomycin Dosing Addendum due to low trough and AUC = 400, and pt cr has decreased since admission, increased dose to 1000 mg q12, trough on 04/10 @0200
[2021-04-08 07:46] VITALS: BP 108/68; PULSE 87; RESP 18; TEMP 36.9; O2SAT 99
--- NOTE | 2021-04-08 08:12 | MHC.CM.PN ---
CASE MANAGEMENT RECEIVED PHONE CALL FROM GUERLINE WHO REPORTS THAT HE IS PATIENT'S . GUERLINE IS AWARE THAT CASE MANAGEMENT CANNOT VERIFY THAT PATIENT IS ON FLOOR, AND IF SO, THAT SHE WANTS ANY INFORMATION TO BE GIVEN OUT. HE REPORTS UNDERSTANDING AND THAT HE WILL BE IN LATER TODAY TO VISIT. WHEN THIS REHAB NURSE ATTEMPTED TO TALK WITH PATIENT, SHE IS NOT RESPONDING TO ATTEMPTS. CASE MANAGEMENT CARD LEFT BEDSIDE.
--- NOTE | 2021-04-08 08:54 | PM.EVENT ---
Event Note Date of Service: 04/08/21 Event Note: Seen this morning at bedside Improving left knee redness. No joint effusion. She is able to flex and extend the knee 0-90. Weightbearing as tolerated. Will sign off for now. Recommend continue IV antibiotics per ID recommendations. Symptomatic treatment for bursitis such as range of motion, Hi wrap as needed. Please consult if symptoms worsen.
[2021-04-08] MEDS: Heparin Sodium,Porcine 5,000 UNIT/ML VIAL 5000 UNIT SUBCUT (09:29)
[2021-04-08] MEDS: 0.9 % Sodium Chloride Flush 3 ML SYRINGE IVFLUSH (09:30)
[2021-04-08] MEDS: 0.9 % Sodium Chloride 1,000 ML 100 ML IVCONT (09:30)
[2021-04-08] MEDS: cloNIDine HCL 0.1 MG TABLET PO (09:40)
[2021-04-08] MEDS: oxyCODONE HCl Immed Release 5 MG TABLET PO (09:41)
--- NOTE | 2021-04-08 09:59 | HO.PM.IMPN ---
Subjective Subjective Date of Service: 04/08/21 Interval History: cc: knee pain and swelling interval history: significant improvement, still has erythema and pain Cardiovascular Cardiovascular: Reports no additional cardiovascular complaints Respiratory Respiratory: Reports no additional respiratory complaints Physical Exam Vital Signs: Vital Signs: Last Vital Signs Temp 98.4 F 04/08/21 07:46 Pulse 87 04/08/21 07:46 Resp 18 04/08/21 07:46 BP 108/68 04/08/21 07:46 Pulse Ox 99 04/08/21 07:46 Body Mass Index 23.6 abraisons throughout both lower extremities with scabs. left knee improving erythema and warmth with tenderness to palpation. General: AO X 3, no acute distress, ill appearing Resp:? CTA bilateral, no accessory muscles used CVS: S1,S2,RRR GI: soft, non tender, non distended Neuro:? motor grossly intact, alert Psych: appropriate affect, appropriate insight? Objective Data Active Medications Clonidine HCl (Clonidine Hcl 0.1 Mg Tablet) 0.1 mg PO BID PRN; Protocol PRN Reason: anxiety/restlessness Last Admin: 04/08/21 09:40 Dose: 0.1 mg Documented by: DESIRE Heparin Sodium (Porcine) (Heparin Sodium,Porcine 5,000 Unit/Ml Vial) 5,000 unit SUBCUT Q12H [facility] Last Admin: 04/08/21 09:29 Dose: 5,000 unit Documented by: DESIRE Sodium Chloride (Ns) 1,000 mls @ 100 mls/hr IVCONT .Q10H [facility] Last Admin: 04/08/21 09:30 Dose: 100 mls/hr Documented by: DESIRE Ceftriaxone Sodium 1 gm/ (Sodium Chloride) 50 mls @ 100 mls/hr IV Q24H [facility] Last Infusion: 04/07/21 16:58 Dose: 0 mls/hr Documented by: ROBBI Vancomycin HCl 1,000 mg/ (Sodium Chloride) 270 mls @ 270 mls/hr IV Q12H [facility] Magnesium Hydroxide (Milk Of Magnesia 30 Ml Oral.Susp) 30 ml PO DAILY PRN PRN Reason: Constipation Melatonin (Melatonin 3 Mg Tablet) 6 mg PO BEDTIME PRN PRN Reason: Insomnia Oxycodone HCl (Oxycodone Hcl Immed Release 5 Mg Tablet) 5 mg PO Q6H PRN PRN Reason: Pain, Severe (Pain Scale 7-10) Last Admin: 04/08/21 09:41 Dose: 5 mg Documented by: DESIRE Pharmacy Consult (Consult Rx Vancomycin Dosing) 1 each MISCELLANE DAILY PRN PRN Reason: Consult order Pharmacy Consult (Consult Rx Vancomycin Dosing) 1 each MISCELLANE DAILY PRN PRN Reason: Consult order Senna (Sennosides 8.6 Mg Tablet) 17.2 mg PO BEDTIME PRN PRN Reason: Constipation Sodium Chloride (0.9 % Sodium Chloride Flush 3 Ml Syringe) [facility] Last Admin: 04/08/21 09:30 Dose: 3 ml Documented by: DESIRE Labs CBC & Chem 7: 04/08/21 04:13 04/08/21 04:13 Labs: Laboratory Results - last 24 hr 04/07/21 04/07/21 04/07/21 07:08 07:08 07:09 MCV MCH MCHC RDW Plt Count MPV Absolute Nucleated RBC Nucleated RBC % (auto) Anion Gap Estim Creat Clear Calc Estimated GFR Fasting Glucose Calcium Total Bilirubin 3.7 H Direct Bilirubin 2.8 H AST 471 H ALT 1227 H Alkaline Phosphatase 143 H D Total Protein 4.7 L D Albumin 2.8 L D Vancomycin Trough Hep Bs Antigen Negative Hep Bs Antibody REACTIVE Hep B Core Total Ab Nonreactive Hepatitis C Ab (EIA) Reactive H Reactive H 04/08/21 04/08/21 04/08/21 01:41 04:13 04:13 MCV 91.6 MCH 31.6 MCHC 34.5 RDW 14.0 Plt Count 299 MPV 9.9 Absolute Nucleated RBC 0.000 Nucleated RBC % (auto) 0.0 Anion Gap 11 L Estim Creat Clear Calc 96.1 Estimated GFR > 60 Fasting Glucose 104 H Calcium 7.6 L Total Bilirubin 3.0 H Direct Bilirubin 2.2 H AST 442 H ALT 1081 H Alkaline Phosphatase 138 H Total Protein 5.0 L Albumin 2.8 L Vancomycin Trough 5.3 L Hep Bs Antigen Hep Bs Antibody Hep B Core Total Ab Hepatitis C Ab (EIA) Microbiology Microbiology Results: Microbiology 04/06/21 16:44 Blood Culture - Preliminary Blood - Venous No growth after 24 hours. 04/06/21 16:59 Blood Culture - Preliminary Blood - Venous No growth after 24 hours. Assessment and Plan (1) Acute liver failure: Status: Acute Assessment and Plan: 30F presented with left knee pain, swelling, erythema, found to have acute liver injury left knee cellulitis continue iv vanco, rocephin, follow up cultures (negative so far), ID ortho following opiate dependence addiction eval acute hepatitis has history of HCV, ?acute decompensation denies alcohol toxic from drug use monitor lfts, supportive treatement gi appreciated Quality Stroke Does the patient have a stroke diagnosis?: No VTE Prior VTE?: No VTE Risk Level:: Medical - moderate - high VTE Device Contraindication: Treatment Not Indicated VTE Drug Contraindication: N/A - Med Ordered
--- NOTE | 2021-04-08 10:18 | PC.NURSE ---
Skin/wound assessment completed. Patient has multiple scabs on lower legs and arms from picking. There is a venous ulcer to left villegas, treated with silver alginate covered with foam dressing. Also on left knee is a small round blister with center scab applied silver alginate and covered with Tegaderm. No other open areas on body at this time. No redness on buttocks or heels.
--- NOTE | 2021-04-08 12:32 | MHC.CM.PN ---
AWAITING ID CONSULT. PATIENT MAY BE ABLE TO DISCHARGE WITHIN 1-2 DAYS. CASE MANAGEMENT FOLLOWING.
--- NOTE | 2021-04-08 13:59 | MHC.RECOVRN ---
T/w attempted to meet with pt to f/u after discussion with Elisa Benitez APRN, this morning. Pt asleep. Will continue to follow.
[2021-04-08] MEDS: vancomycin HCL 1,000 MG in 0.9 % Sodium Chloride 250 ML 270 MG IV (14:56)
--- NOTE | 2021-04-08 15:15 | W.PM.IDCN ---
History of Present Illness Data of Consult Service Date: 04/08/21 Requesting physician: Reed Abdi Primary Care Provider: Unknown Physician HPI Reason for consult: left knee swelling She presents with left knee swelling and erythema She reports symptoms for five days and there are abrasions around knee and circular markings She has screen positive for fentanyl and opiates PMFSH Past Medical History Medical History delivery delivered No known health problems Family History Family history: reviewed and not pertinent Surgical History Surgical History History of carpal tunnel surgery of left wrist History of carpal tunnel surgery of right wrist History of cholecystectomy Social History Social History Household Members: None Housing: Other Do you presently have visiting nurse or other home services: No (staying with friends curently) Unable to assess alcohol history related to: Unknown Patient Tobacco Use Status: Current everyday Tobacco user Tobacco use type: Cigarette Cigarette Packs Per Day: 0.5 Cigarettes Per Day: 10.0 Smoked in Last 30 Days: Yes Patient Interested in Nicotine Replacement: No Patient Given Instructions on How to Stop Smoking: Yes Date Education Initiated: 04/07/21 Second Hand Smoke Exposure: Yes Use of substances other than those prescribed or required for medical reasons: Yes Substance Use Type: Crack/Cocaine and Heroin Substance Use Frequency: Chronic Longstanding Last Used Substance: Just Prior to Admission Last Used Substance Other:: 04/05/21 Currently Displaying Signs/Symptoms of Drug Intoxication Withdrawal: No Any prior treatment program specific to substance use: No Have you been hit, kicked, punched, or otherwise hurt by someone within the past year? If so, by whom?: No Do you feel safe in your current relationship?: No Is there a partner from a previous relationship who is making you feel unsafe now?: No Are you made to feel afraid or neglected: No Spiritual Healthcare Practices: none Advance Directives: No Advance Directives Information Provided: No Do you have thoughts of harming others: None Do you have a plan to hurt others: No Plan Recently lost weight without trying: Yes How much weight loss: 14-23 pounds Eating poorly because of decreased appetite: Yes Nutrition screen score: 5 Nutrition Risks: Acute nausea or vomiting x1 week Patient : No : No Poor oral hygiene: No Meds Allergies Allergy/AdvReac Type Severity Reaction Status Date / Time No Known Allergies Allergy Unverified 04/06/21 16:43 Active Medications: Current Medications Clonidine HCl (Clonidine Hcl 0.1 Mg Tablet) 0.1 mg PO BID PRN; Protocol PRN Reason: anxiety/restlessness Last Admin: 04/08/21 09:40 Dose: 0.1 mg Documented by: Heparin Sodium (Porcine) (Heparin Sodium,Porcine 5,000 Unit/Ml Vial) 5,000 unit SUBCUT Q12H [facility] Last Admin: 04/08/21 09:29 Dose: 5,000 unit Documented by: Ceftriaxone Sodium 1 gm/ (Sodium Chloride) 50 mls @ 100 mls/hr IV Q24H [facility] Last Infusion: 04/07/21 16:58 Dose: Infused Documented by: Vancomycin HCl 1,000 mg/ (Sodium Chloride) 270 mls @ 270 mls/hr IV Q12H [facility] Last Admin: 04/08/21 14:56 Dose: 270 mls/hr Documented by: Magnesium Hydroxide (Milk Of Magnesia 30 Ml Oral.Susp) 30 ml PO DAILY PRN PRN Reason: Constipation Melatonin (Melatonin 3 Mg Tablet) 6 mg PO BEDTIME PRN PRN Reason: Insomnia Oxycodone HCl (Oxycodone Hcl Immed Release 5 Mg Tablet) 5 mg PO Q6H PRN PRN Reason: Pain, Severe (Pain Scale 7-10) Last Admin: 04/08/21 09:41 Dose: 5 mg Documented by: Pharmacy Consult (Consult Rx Vancomycin Dosing) 1 each MISCELLANE DAILY PRN PRN Reason: Consult order Pharmacy Consult (Consult Rx Vancomycin Dosing) 1 each MISCELLANE DAILY PRN PRN Reason: Consult order Senna (Sennosides 8.6 Mg Tablet) 17.2 mg PO BEDTIME PRN PRN Reason: Constipation Sodium Chloride (0.9 % Sodium Chloride Flush 3 Ml Syringe) 3 ml IVFLUSH QSHIFT [facility] Last Admin: 04/08/21 09:30 Dose: 3 ml Documented by: Physical Exam Vital Signs: Vital Signs: Last Vital Signs Temp 98.4 F 04/08/21 07:46 Pulse 87 04/08/21 07:46 Resp 18 04/08/21 07:46 BP 108/68 04/08/21 07:46 Pulse Ox 99 04/08/21 07:46 Body Mass Index 23.6 Const: General: cooperative HENMT: Head: Yes normal to inspection Mouth: Normal oral and palatal mucosa present Eyes: General: appearance normal, both eyes and all related structures Resp: Effort & Inspection: normal respiratory effort Cardio: Rate: regular rate Rhythm: regular rhythm GI: Palpation (GI): Soft to palpation and nontender Extrem: Other: left knee pain on moving suprapatellar bursal area abrasions around area Results Labs CBC & Chem 7: 04/08/21 04:13 04/08/21 04:13 Labs: Short CBC 04/08/21 Range/Units 04:13 WBC 14.7 H (4.8-10.8) X10*3/uL Hgb 12.1 (12.0-16.0) g/dl Hct 35.1 L (37-47) % Plt Count 299 (160-400) X10*3/uL BMP 04/08/21 04:13 Sodium 141 Potassium 3.7 Chloride 109 H Carbon Dioxide 25 BUN 5 L Creatinine 0.57 Calcium 7.6 L Liver Function 04/08/21 Range/Units 04:13 Total Bilirubin 3.0 H (0.0-1.0) mg/dL Direct Bilirubin 2.2 H (0.0-0.5) mg/dL AST 442 H (5-31) U/L ALT 1081 H (0-31) U/L Alkaline Phosphatase 138 H (39-117) U/L Albumin 2.8 L (3.5-5.0) g/dL Microbiology Microbiology Results: Microbiology 04/06/21 16:44 Blood - Venous Blood Culture - Preliminary No growth after 24 hours. 04/06/21 16:59 Blood - Venous Blood Culture - Preliminary No growth after 24 hours. Assessment and Plan (1) Cellulitis: Qualifiers: Laterality: left Site of cellulitis: extremity Site of cellulitis of extremity: lower extremity Qualified Code(s): L03.116 - Cellulitis of left lower limb Status: Acute (2) Septic prepatellar bursitis of left knee: Status: Acute Possible staph or strep IVDU (3) Hx of hepatitis C: Status: Acute Continue Ceftriaxone and Vancomycin Await cultures If leaves AMA Doxycycline and Augmentin for 10 days Recheck HIV test
--- NOTE | 2021-04-08 15:22 | MHC.CLN ---
NUTRITION PATIENT REPORTED THAT SHE HAD QUICK WEIGHT LOSS BUT UNABLE TO STATE AMOUNT OR TIMEFRAME. POLYSUBSTANCE ABUSE AND WEIGHT LOSS DUE TO NOT EATING. REPORTS THAT SHE IS EATING NORMAL NOW AND IS NOT CONCERNED WITH APPETITE. NO NEW NUTRITION INTERVENTIONS AT THIS TIME.
[2021-04-08 15:41] LABS: Anti Nuclear Antibody Screen NEGATIVE (NEGATIVE)
--- NOTE | 2021-04-08 16:02 | PM.DS ---
DS: Providers Provider Date of Service: 04/08/21 Date of admission: 04/06/21 22:46 Primary care physician: Unknown Physician Consults: 04/06/21 22:46 Addiction Medicine Routine Consulting Provider: Elisa Benitez Reason for consultation: opiate abuse Consult to Gastroenterology Routine Consulting Provider: Rayshawn Bryant Reason for consultation: Transaminitis Consult to Infectious Diseases Routine Consulting Provider: Sheree Montiel Reason for consultation: left knee cellulitis; diffuse skin lesion; Untreated HepC hx DS: Diagnosis Discharge Diagnosis (1) Cellulitis: Status: Acute (2) Septic prepatellar bursitis of left knee: Status: Acute (3) Hx of hepatitis C: Status: Acute DS: Summary Hospital Course Hospital Course: Patient was admitted for left knee cellulitis and acute hepatitis. She was given IV vancomycin and ceftriaxone. She was advised by Orthopedics felt she did not need surgical intervention. She was seen by infectious disease recommended continuing vancomycin ceftriaxone following up cultures and HIV. However, patient did not want to stay and set leave against medical advice she is aware of all the risks of doing so including . She will be treated with p.o. doxycycline Augmentin although this is not ideal. For her acute hepatitis this was likely toxic from drug use, could be decompensation of known HCV. Time Spent with Patient Time attestation: Total time spent providing and/or coordinating discharge services: Discharge coordination time: Greater than 30 minutes Quality: Stroke Does the patient have a stroke diagnosis?: No Physical Exam Vital Signs: Vital Signs: Last Vital Signs Temp 98.4 F 04/08/21 07:46 Pulse 87 04/08/21 07:46 Resp 18 04/08/21 07:46 BP 108/68 04/08/21 07:46 Pulse Ox 99 04/08/21 07:46 Body Mass Index 23.6 abraisons throughout both lower extremities with scabs. left knee improving erythema and warmth with tenderness to palpation. General: AO X 3, no acute distress, ill appearing Resp:? CTA bilateral, no accessory muscles used CVS: S1,S2,RRR GI: soft, non tender, non distended Neuro:? motor grossly intact, alert Psych: appropriate affect, appropriate insight? DS: Data Data Completed and Pending Labs on day of discharge: Laboratory Results - last 24 hr 04/07/21 04/07/21 04/07/21 07:08 07:09 07:09 WBC RBC Hgb Hct MCV MCH MCHC RDW Plt Count MPV Absolute Nucleated RBC Nucleated RBC % (auto) Sodium Potassium Chloride Carbon Dioxide Anion Gap BUN Creatinine Estim Creat Clear Calc Estimated GFR Fasting Glucose Calcium Total Bilirubin Direct Bilirubin AST ALT Alkaline Phosphatase Total Protein Albumin Vancomycin Trough BUNNY Screen NEGATIVE Hep Bs Antigen Negative Hep Bs Antibody REACTIVE Hep B Core Total Ab Nonreactive Hepatitis C Ab (EIA) Reactive H Reactive H 04/08/21 04/08/21 04/08/21 01:41 04:13 04:13 WBC 14.7 H RBC 3.83 L Hgb 12.1 Hct 35.1 L MCV 91.6 MCH 31.6 MCHC 34.5 RDW 14.0 Plt Count 299 MPV 9.9 Absolute Nucleated RBC 0.000 Nucleated RBC % (auto) 0.0 Sodium 141 Potassium 3.7 Chloride 109 H Carbon Dioxide 25 Anion Gap 11 L BUN 5 L Creatinine 0.57 Estim Creat Clear Calc 96.1 Estimated GFR > 60 Fasting Glucose 104 H Calcium 7.6 L Total Bilirubin 3.0 H Direct Bilirubin 2.2 H AST 442 H ALT 1081 H Alkaline Phosphatase 138 H Total Protein 5.0 L Albumin 2.8 L Vancomycin Trough 5.3 L BUNNY Screen Hep Bs Antigen Hep Bs Antibody Hep B Core Total Ab Hepatitis C Ab (EIA) Preliminary micro results at discharge 04/06/21 16:44 Blood Culture - Preliminary Blood - Venous No growth after 24 hours. 04/06/21 16:59 Blood Culture - Preliminary Blood - Venous No growth after 24 hours. Discharge Plan Discharge Patient Disposition: Left Against Medical Advice Discharge Diagnosis: knee cellulitits, Referrals: Physician,Unknown [Primary Care Provider] - 1 Week Discharge Orders: Discharge Order (Routine); Ordered 04/08/21 Ordered By: Reed bAdi Care Plan Goals: reocvery Health Concerns: liver failure, knee cellulitis, ivda Plan of Treatment: cannot properly treat out of hospital, avoid drugs Assessment: see above
--- NOTE | 2021-04-08 16:11 | PC.NURSE ---
1605 pt left AMA.seen by Dr Abdi prior to leaving. Not interested in picking up A/B therapy Ambulated without diff. small dsg on knee intact. area red with some local edema.
--- NOTE | 2021-04-08 17:26 | PM.EVENT ---
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
[2021-04-10 08:24] LABS: Hepatitis A Antibody IgM 0.24 Index (0-0.79); ~Hepatitis A Antibody IgM Nonreactive (Nonreactive)
[2021-04-10 13:22] LABS: HCV Log PCR 6.48 Log IU/mL (NOT DETECTED); HepC Viral Load 2990000 IU/mL (NOT DETECTED)
== END 2021-04-08 17:39 | disposition left against medical advice (07) | DRG 351 ==
LOC: HO.ED 20:15 → HO.EDOVER 23:06 → HO.S3 04-07 18:57
PROVIDERS: Internal Medicine Gastroenterology; Physician Assistant; Admitting Provider Hospitalist; Emergency Provider Emergency Medicine; Visit Provider Internal Medicine
DX: M71.162 Other infective bursitis, left knee (principal); K72.00 Acute and subacute hepatic failure without coma; L03.116 Cellulitis of left lower limb; B19.20 Unspecified viral hepatitis C without hepatic coma; F43.10 Post-traumatic stress disorder, unspecified; F11.20 Opioid dependence, uncomplicated; Z20.822 Contact with and (suspected) exposure to COVID-19; F14.10 Cocaine abuse, uncomplicated; F17.210 Nicotine dependence, cigarettes, uncomplicated; Z71.6 Tobacco abuse counseling
CPT/HCPCS: 36415; 73562; 73590; 74177; 80048; 80076; 80143; 80202; 80307; 82077; 82550; 83605; 83735; 84702; 85025; 85027; 85610; 85652; 85730; 86038; 86039; 86140; 86704; 86706; 86709; 86803; 87040; 87340; 87522; 87635; 93970; 96361; 96374; 96375; 99218; 99285; J0696; J1885; J3370; Q9967